=== PATIENT | female | born 1960 | race Caucasian/White ===

== ENCOUNTER → 2017-10-17 10:48 | Outpatient (CLI) | payer OTHER, SELFPAY | PROVIDERS: Family Provider Family Medicine; PCP Family Medicine; Visit Provider Nurse Practitioner Women's Health | DX: Z12.31 Encounter for screening mammogram for malignant neoplasm of breast (principal) | CPT/HCPCS: 77063; 77067 ==

== ENCOUNTER → 2018-10-18 | Outpatient (CLI) | payer OTHER, SELFPAY ==
--- NOTE | 2018-10-18 08:38 | BI_ITS ---
MAMMOGRAPHY - BILATERAL SCREENING REASON FOR EXAM: Female, 58 years old. Routine annual screening examination. PERTINENT HISTORY: Non-contributory. TECHNIQUE: Digital bilateral breast lilian (3D mammographic acquisition) in the CC and MLO projections. 2-D mediolateral oblique (MLO) and craniocaudad (CC) views of both breasts were obtained. CAD: Full Field Digital Mammography with Computer Added Detection was performed. COMPARISON: Comparison is made with prior study dated October 17, 2017 and September 23, 2006. FINDINGS: Breast Composition: The breasts are heterogeneously dense, which may obscure small masses. There are no dominant masses or suspicious calcifications. Stable small bilateral benign-appearing axillary lymph nodes. No other significant abnormalities are identified. There has been no significant change since the prior study. BI/SCREEN MAMM (CAD) W/LILIAN BILAT IMPRESSION: Stable bilateral screening mammogram. Yearly follow-up mammogram recommended. (A) ASSESSMENT CATEGORY: BIRADS Category 2: Benign. A letter regarding these results will be sent to the patient by the facility within 30 days. Approximately 10% of breast cancers are not detected by mammography. A normal mammogram should not delay biopsy of a clinically suspicious abnormality. [id number] Electronically Signed: Yusuf Smith, at 10:38 EDT , Service support ,
== END | disposition home or self-care (01) ==
LOC: OPBI 08:38
PROVIDERS: Family Provider Family Medicine; PCP Family Medicine; Referring Provider Nurse Practitioner Women's Health; Visit Provider Nurse Practitioner Women's Health
DX: Z12.31 Encounter for screening mammogram for malignant neoplasm of breast (principal)
CPT/HCPCS: 77063; 77067

== ENCOUNTER → 2019-12-10 | Outpatient (CLI) | payer OTHER, SELFPAY ==
[2018-10-18 10:05] VITALS: BMI 30.7
[2019-12-10 10:01] VITALS: BMI 29.9
[2019-12-15 13:12] LABS: HPV APTIMA, High Risk Negative (Negative)
== END | disposition home or self-care (01) ==
LOC: OPBI 16:47
PROVIDERS: PCP Family Medicine; Referring Provider Nurse Practitioner Women's Health; Visit Provider Nurse Practitioner Women's Health
DX: Z12.4 Encounter for screening for malignant neoplasm of cervix (principal)
CPT/HCPCS: 87624; 88175; G0145

== ENCOUNTER → 2020-04-27 14:47 | Outpatient (CLI) | payer OTHER, SELFPAY ==
[2019-12-10 10:01] VITALS: BMI 29.9
--- NOTE | 2020-04-27 14:51 | RAD_ITS ---
STUDY: X-RAY - THORACIC SPINE REASON FOR EXAM: Female, 59 years old. BACK PAIN -- left upper chest and shoulder pain and numbness also TECHNIQUE: 3 view(s) of the thoracic spine were obtained. COMPARISON: None. FINDINGS: Normal kyphosis of the thoracic spine. There is no substantial scoliosis. Normal thoracic vertebrae with mild spurring at the mid thoracic endplates. Slightly narrowed mid thoracic disc space heights. The soft tissue structures are unremarkable. RAD/Thoracic Spine 2 Views IMPRESSION: Mild degenerative changes of the thoracic spine. Electronically Signed: Travis Carter DO at 16:05 EDT Tel [phone], Service support ,
== END ==
LOC: MTLAB 14:49 → MTRAD 14:49
PROVIDERS: PCP Family Medicine; Referring Provider Family Medicine; Visit Provider Family Medicine
DX: M54.6 Pain in thoracic spine (principal)
CPT/HCPCS: 72070

== ENCOUNTER → 2020-04-30 12:22 | Outpatient (CLI) | payer OTHER, SELFPAY ==
[2019-12-10 10:01] VITALS: BMI 29.9
--- NOTE | 2020-04-30 12:35 | STE_ITS ---
Reason For Study: CHEST PAIN Stress Results Protocol: Stress Echocardiogram Maximum Predicted HR: 161 bpm Target HR: 137 bpm % Maximum Predicted HR: 91 % Heart Stage Duration Rate BP Comment (mm:ss) (bpm) BASELINE 63 144/74STATES SHE HAS CHEST DISCOMFORT CONSTANTLY SAROJ PROTOCOL- STAGE 1 3:00 108 144/70 SAROJ PROTOCOL- STAGE 2 3:00 123 146/60CHEST MORE TENDER UNDER L ARMPIT SAROJ PROTOCOL- STAGE L KNEE TENDERNESS, L ARMPIT TENDERNESS CONTINUES, 3 2:00 146 160/72SOB RECOVERY 77 118/72SX SUBSIDED Stress Duration: 8:00 mm:ss Maximum Stress HR: 146 bpm Baseline Echocardiogram Findings Stress Echo Wall motion Data Resting WM Intermediate WM Stress WM Doppler Measurements & Calculations AI max jose: 447.7 cm/sec AI max P.2 mmHg AI dec slope: 219.1 cm/sec2 AI P1/2t: 598.6 msec Interpretation Summary Exercise stress echo. 59-year-old lady with a history of coronary artery disease. Stress protocol: Resting EKG demonstrates normal sinus rhythm with a rate of 62 bpm normal intervals are noted resting blood pressure is 144/74 mmHg. The patient exercised according to the regular Saroj protocol for a total duration of 8 minutes. Patient completed 2 minutes into stage III of the Saroj protocol the maximum heart rate attained was 146 bpm which was 90% of max impacted heart rate the maximum workload was 10.4 metabolic equivalents. At rest there were no ST or T wave changes noted to suggest ischemia at peak exercise upsloping ST changes were noted with no meet the criteria for ischemia. No clinical angina was noted. The resting blood pressure was 144/74 with a peak blood pressure 160/72 mmHg which was a good blood pressure response to exercise. Patient had constant chest discomfort throughout the exercise not meeting the criteria for ischemia. Stress echocardiogram. Resting and stress echocardiographic images were obtained. The resting ejection fraction was approximately 55%. No obvious wall motion abnormalities were noted. At peak exercise there was thickening of all ford and reduction in low ventricular cavity size with peaking of ejection fraction at 65%. No wall motion abnormalities were present. Conclusion: Exercise stress echo with no EKG criteria for ischemia at a high workload. Chest discomfort noted not suggestive of angina. Normal stress and resting echocardiographic images. Ordering Physician: Lukas Pierre Referring Physician: Lukas Pierre Performed By: Sara Lux, GRETA, RVT
== END ==
PROVIDERS: PCP Family Medicine; Referring Provider Family Medicine; Visit Provider Family Medicine
DX: R07.9 Chest pain, unspecified (principal)
CPT/HCPCS: 93017; 93350

== ENCOUNTER → 2020-12-15 08:08 | Outpatient (CLI) | payer OTHER, SELFPAY ==
[2019-12-10 10:01] VITALS: BMI 29.9
--- NOTE | 2020-12-15 08:11 | BI_ITS ---
MAMMOGRAPHY - BILATERAL SCREENING REASON FOR EXAM: Female, 60 years old. Routine annual screening examination. PERTINENT HISTORY: Non-contributory. Chronic nipple inversion. TECHNIQUE: Digital bilateral breast lilian (3D mammographic acquisition) in the CC and MLO projections. 2-D mediolateral oblique (MLO) and craniocaudad (CC) views of both breasts were obtained. CAD: Full Field Digital Mammography with Computer Added Detection was performed. COMPARISON: Comparison is made with prior study of 12/18/2018 and 10/17/2017. FINDINGS: Breast Composition: The breasts are heterogeneously dense, which may obscure small masses. There are no dominant masses or suspicious calcifications. Stable small benign-appearing bilateral axillary lymph nodes. No other significant abnormalities are identified. There has been no significant change since the prior study. BI/SCRN MAMM (CAD)W/LILIAN BILAT IMPRESSION: Stable bilateral screening mammogram. Yearly follow-up mammogram recommended. (A) ASSESSMENT CATEGORY: BIRADS Category 2: Benign. A letter regarding these results will be sent to the patient by the facility within 30 days. Approximately 10% of breast cancers are not detected by mammography. A normal mammogram should not delay biopsy of a clinically suspicious abnormality. [id number] Electronically Signed: Yusuf Smith MD at 12:44 EDT , Service support ,
== END ==
PROVIDERS: PCP Family Medicine; Referring Provider Nurse Practitioner Women's Health; Visit Provider Nurse Practitioner Women's Health
DX: Z12.31 Encounter for screening mammogram for malignant neoplasm of breast (principal)
CPT/HCPCS: 77063; 77067

== ENCOUNTER → 2021-12-21 | Outpatient (CLI) | payer MEDICAID, SELFPAY ==
--- NOTE | 2021-12-21 09:07 | BI_ITS ---
MAMMOGRAPHY - BILATERAL SCREENING REASON FOR EXAM: Female, 61 years old. Routine annual screening examination. PERTINENT HISTORY: Non-contributory. The nipples are always inverted. TECHNIQUE: Digital bilateral breast lilian (3D mammographic acquisition) in the CC and MLO projections. 2-D mediolateral oblique (MLO) and craniocaudad (CC) views of both breasts were obtained. CAD: Full Field Digital Mammography with Computer Added Detection was performed. COMPARISON: Comparison is made with prior study dated 12/15/2020 and 10/18/2018. FINDINGS: Breast Composition: The breasts are heterogeneously dense, which may obscure small masses. There are no dominant masses or suspicious calcifications. Stable small benign appearing bilateral axillary lymph nodes. No other significant abnormalities are identified. There has been no significant change since the prior study. BI/SCRN MAMM (CAD)W/LILIAN BILAT IMPRESSION: Stable bilateral screening mammogram. Yearly follow-up mammogram recommended. (A) ASSESSMENT CATEGORY: BIRADS Category 2: Benign. A letter regarding these results will be sent to the patient by the facility within 30 days. Approximately 10% of breast cancers are not detected by mammography. A normal mammogram should not delay biopsy of a clinically suspicious abnormality. [id number] Electronically Signed: Yusuf Smith MD at 10:23 EST ,
== END | disposition home or self-care (01) ==
LOC: OPBI 09:06
PROVIDERS: PCP Family Medicine; Referring Provider Nurse Practitioner Women's Health; Visit Provider Nurse Practitioner Women's Health
DX: Z12.31 Encounter for screening mammogram for malignant neoplasm of breast (principal)
CPT/HCPCS: 77063; 77067

== ENCOUNTER → 2023-01-26 | Outpatient (CLI) | payer OTHER, SELFPAY ==
--- NOTE | 2023-01-26 13:11 | BI_ITS ---
MAMMOGRAPHY - BILATERAL SCREENING REASON FOR EXAM: Female, 62 years old. Routine annual screening examination. PERTINENT HISTORY: Non-contributory. History of bilateral nipple inversion TECHNIQUE: Digital bilateral breast lilian (3D mammographic acquisition) in the CC and MLO projections. 2-D mediolateral oblique (MLO) and craniocaudad (CC) views of both breasts were obtained. CAD: Full Field Digital Mammography with Computer Added Detection was performed. COMPARISON: Comparison is made with prior examination December 21, 2021 and December 15, 2020. FINDINGS: Breast Composition: The breasts are heterogeneously dense, which may obscure small masses. There are no dominant masses or suspicious calcifications. Stable small benign-appearing bilateral axillary lymph nodes. No other significant abnormalities are identified. There has been no significant change since the prior study. BI/SCRN MAMM (CAD)W/LILIAN BILAT IMPRESSION: Stable bilateral screening mammogram. Yearly follow-up mammogram recommended. (A) ASSESSMENT CATEGORY: BIRADS Category 2: Benign. A letter regarding these results will be sent to the patient by the facility within 30 days. Approximately 10% of breast cancers are not detected by mammography. A normal mammogram should not delay biopsy of a clinically suspicious abnormality. [id number] Electronically Signed: Yusuf Smith MD at 14:05 EST ,
== END | disposition home or self-care (01) ==
LOC: OPBI 13:10
PROVIDERS: PCP Family Medicine; Referring Provider Nurse Practitioner Women's Health; Visit Provider Nurse Practitioner Women's Health
DX: Z12.31 Encounter for screening mammogram for malignant neoplasm of breast (principal)
CPT/HCPCS: 77063; 77067

== ENCOUNTER → 2023-12-27 | Outpatient (CLI) | payer OTHER, SELFPAY ==
--- NOTE | 2023-12-27 16:15 | RAD_ITS ---
INDICATION: RT FOOT BACK OF HEEL, BUMP EXAMINATION/TECHNIQUE: X-RAY - RIGHT XR Foot Min 3 Views 3 VIEWS COMPARISON: FINDINGS: SOFT TISSUES: No soft tissue swelling or gas. No radiopaque foreign body. BONES/JOINTS: No acute fracture or subluxation.. Mild hallux valgus. Calcaneal spurring at the Achilles tendon insertion. No sclerotic or destructive changes observed. RAD/Foot min 3 Views IMPRESSION: No acute bony injury. Electronically Signed: Travis Carter DO at 9:53 EST ,
[2023-12-27 18:24] LABS: Uric Acid 4.5 mg/dL (2.6-6.0)
== END | disposition home or self-care (01) ==
LOC: MTLAB 16:08
PROVIDERS: PCP Family Medicine
DX: M67.40 Ganglion, unspecified site (principal)
CPT/HCPCS: 36415; 73630; 84550

== ENCOUNTER → 2024-02-19 | Outpatient (CLI) | payer OTHER, SELFPAY ==
--- NOTE | 2024-02-19 14:36 | BI_ITS ---
MAMMOGRAPHY - BILATERAL SCREENING REASON FOR EXAM: Female, 63 years old. Routine annual screening examination. PERTINENT HISTORY: Non-contributory. TECHNIQUE: Digital bilateral breast lilian (3D mammographic acquisition) in the CC and MLO projections. 2-D mediolateral oblique (MLO) and craniocaudad (CC) views of both breasts were obtained. CAD: Full Field Digital Mammography with Computer Added Detection was performed. COMPARISON: Comparison is made with prior study dated January 26, 2023 and December 21, 2021. FINDINGS: Breast Composition: The breasts are heterogeneously dense, which may obscure small masses. There are no dominant masses or suspicious calcifications. Stable small benign-appearing bilateral axillary lymph nodes. No other significant abnormalities are identified. There has been no significant change since the prior study. BI/SCRN MAMM (CAD)W/LILIAN BILAT IMPRESSION: Stable bilateral screening mammogram. Yearly follow-up mammogram recommended. (A) ASSESSMENT CATEGORY: BIRADS Category 2: Benign. A letter regarding these results will be sent to the patient by the facility within 30 days. Approximately 10% of breast cancers are not detected by mammography. A normal mammogram should not delay biopsy of a clinically suspicious abnormality. [id number] Electronically Signed: Yusuf Smith MD at 10:37 EST ,
== END | disposition home or self-care (01) ==
LOC: OPBI 14:35
PROVIDERS: PCP Family Medicine; Referring Provider Nurse Practitioner Women's Health; Visit Provider Nurse Practitioner Women's Health
DX: Z12.31 Encounter for screening mammogram for malignant neoplasm of breast (principal)
CPT/HCPCS: 77063; 77067

== ENCOUNTER 2024-10-18 09:14 | Day surgery (SDC) | payer OTHER, SELFPAY ==
--- NOTE | 2024-10-11 13:24 | PAT.ANE_ITS ---
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 When Was Last Pacemaker Check QUESTION #4 FULL TEXT: You/Your Family Experience fever (hyperthermia) with Anesthesia Last Oral Intake Last Oral intake: Last Oral Intake NPO since Meds taken in AM with sips of water? 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 PONV - vending machine assembler: PONV - vending machine assembler Female Yes 10/11/24 13:12 HX of Motion Sickness Yes 10/11/24 13:12 HX of N/V After Surgery No 10/11/24 13:12 Non-Smoker Yes 10/11/24 13:12 Duration of Surgery greater No 10/11/24 13:12 than 60 minutes Number of Risk Factors 3 10/11/24 13:12 PONV Score Moderate Risk 10/11/24 13:12 Height & Weight Height & Weight: Anesthesia: Height & Weight Height 5 ft 6 in 01/29/24 13:38 Respiratory Assessment Respiratory Assessment - vending machine assembler: Respiratory Tract Infection Hx - vending machine assembler Hx Respiratory Tract Infection No 10/11/24 13:12 STOP Sleep Apnea STOP Sleep Apnea - vending machine assembler: STOP Sleep Apnea - vending machine assembler Hx Hypertension No 10/11/24 13:12 Hx Sleep Apnea No 10/11/24 13:12 CPAP BIPAP Do you snore loudly (louder No 10/11/24 13:12 than talking or can be heard Do you often feel tired/ No 10/11/24 13:12 fatigued/ sleepy during daytime? Has anyone observed you stop No 10/11/24 13:12 breathing during sleep? STOP Results Negative 10/11/24 13:12 QUESTION #5 FULL TEXT : Do you snore loudly (louder than talking or can be heard through closed doors)? 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 Specify any problems Hx of Preganancy in last 3 N/A 10/11/24 13:12 Months Nurse Filling Out Transfusion NBUCHER 10/11/24 13:12 & Questions: Date: 10/11/24 10/11/24 13:12 Time: 13:12 10/11/24 13:12 Patient unable to answer at this time (ie. confused, unrespo /Reproduction History /Reproductive History - vending machine assembler: /Reproductive Hx- vending machine assembler Hx Now No 10/11/24 13:12 Gestational Age (in weeks): EDC: Hx Hx Para Hx Section SAB No 10/11/24 13:12 [facility] Medical History (Updated 10/11/24 @ 13:17 by Ariana Lopez) Wears contact lenses Wears glasses Non-smoker History of echocardiogram History of stress test History of vertigo Vertigo Ganglion of left hand IBS (irritable bowel syndrome) Home Medications ?Medication ?Instructions ?Recorded ?Last Taken ?Type NK 10/17/17 Unknown History Allergy/AdvReac Type Severity Reaction Status Date / Time Penicillins Allergy Mild Unknown Verified 10/11/24 13:11 sulfamethoxazole Allergy Mild itchy, rash Verified 10/11/24 13:11 Family History Mother Cancer non-hodgkins lymphoma Father Cancer leukemia Heart disease Grandmother Heart disease Surgical History H/O colonoscopy H/O tubal ligation Hx of cholecystectomy History of tonsillectomy H/O dilation and curettage Social History Smoking Status: Never smoker alcohol intake: current details: social substance use type: does not use caffeine: Yes what type of physical activity do you participate in: walking and other details: Ajit frequency: 3-4 times per week seatbelt use: always do you feel safe at home: Yes additional social history: - Oscar Patient and are both retired Recommendation Anesthesia Recommendation Anesthesia recommendation: OPTIMIZED for anesthesia
[2024-10-18] VITALS (9 sets, daily range): BP systolic 97–133; BP diastolic 34–64; PULSE 54–74; RESP 12–16; TEMP 36.1–36.4; O2SAT 96–99; BMI 28.0
[2024-10-18] MEDS: Lactated Ringers 1,000 ML 15 ML IV (09:43)
--- NOTE | 2024-10-18 09:59 | PRE.ANES_ITS ---
ASA Classification* ASA Classification ASA Classification: 1 Assessment & Plan Anesthesia* Anesthesia Assessment Anesthesia Assessment: Discussed sedation and/or anesthesia options, risks, benefits, and alternatives with patient/parents/legal guardian/POA. Questions invited. The patient/parents/legal guardian/POA seems to understand and agrees to proceed with anesthesia plan. Reviewed the physical assessment, medical history, allergy history and patient home medications list prior to surgery/procedure/anesthetic and documented any changes. Performed airway and anesthesia risk assessments. Anesthesia Type Anesthesia Type: MAC History Source History Obtained from:: Patient and Chart Anesthesia Focused Assessment* Temperature: 97.5 F Pulse Rate: 74 Blood Pressure: 133/53 Respiratory Rate: 12 Pulse Ox: 98 Oxygen Delivery Method: Room Air Airway Assessment Mouth opens: >3 cm Mallampati Score: III Teeth Condition: Caps/Crowns (Tooth #8 has a cap. 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 When Was Last Pacemaker Check QUESTION #4 FULL TEXT: You/Your Family Experience fever (hyperthermia) with Anesthesia Last Oral Intake Last Oral intake: Last Oral Intake NPO since 20:00 10/18/24 09:35 Meds taken in AM with sips of No 10/18/24 09:35 water? 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 PONV - vice president of software development: PONV - vice president of software development Female Yes 10/11/24 13:12 HX of Motion Sickness Yes 10/11/24 13:12 HX of N/V After Surgery No 10/11/24 13:12 Non-Smoker Yes 10/11/24 13:12 Duration of Surgery greater No 10/11/24 13:12 than 60 minutes Number of Risk Factors 3 10/11/24 13:12 PONV Score Moderate Risk 10/11/24 13:12 Height & Weight Height & Weight: Anesthesia: Height & Weight Height 5 ft 6 in 10/18/24 09:35 Weight: 79 kg 10/18/24 09:35 Body Mass Index (BMI) 28.0 10/18/24 09:35 Respiratory Assessment Respiratory Assessment - vice president of software development: Respiratory Tract Infection Hx - vice president of software development Hx Respiratory Tract Infection No 10/11/24 13:12 STOP Sleep Apnea STOP Sleep Apnea - vice president of software development: STOP Sleep Apnea - vice president of software development Hx Hypertension No 10/11/24 13:12 Hx Sleep Apnea No 10/11/24 13:12 CPAP BIPAP Do you snore loudly (louder No 10/11/24 13:12 than talking or can be heard Do you often feel tired/ No 10/11/24 13:12 fatigued/ sleepy during daytime? Has anyone observed you stop No 10/11/24 13:12 breathing during sleep? STOP Results Negative 10/11/24 13:12 QUESTION #5 FULL TEXT : Do you snore loudly (louder than talking or can be heard through closed doors)? 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 Specify any problems Hx of Preganancy in last 3 N/A 10/11/24 13:12 Months Nurse Filling Out Transfusion [facility]BU[facility] 10/11/24 13:12 & Questions: Date: 10/11/24 10/11/24 13:12 Time: 13:12 10/11/24 13:12 Patient unable to answer at this time (ie. confused, unrespo /Reproduction History /Reproductive History - vice president of software development: /Reproductive Hx- vice president of software development Hx Now No 10/11/24 13:12 Gestational Age (in weeks): EDC: Hx Hx Para Hx Section SAB No 10/11/24 13:12 Active Medications Active Medications: Current Medications Generic Name Dose Route Start Last Admin Trade Name Freq PRN Reason Stop Dose Admin Lactated Ringer's 1,000 mls @ 15 mls/hr 10/18/24 09:30 10/18/24 09:43 IV 15 mls/hr .Q48H ANTOLIN Administration PFSH Medical History Wears contact lenses Wears glasses Non-smoker History of echocardiogram History of stress test History of vertigo Vertigo Ganglion of left hand IBS (irritable bowel syndrome) Home Medications ?Medication ?Instructions ?Recorded ?Last Taken ?Type NK 10/17/17 Unknown History Allergy/AdvReac Type Severity Reaction Status Date / Time Penicillins Allergy Mild Unknown Verified 10/18/24 09:34 sulfamethoxazole Allergy Mild itchy, rash Verified 10/18/24 09:34 Family History Mother Cancer non-hodgkins lymphoma Father Cancer leukemia Heart disease Grandmother Heart disease Surgical History H/O colonoscopy H/O tubal ligation Hx of cholecystectomy History of tonsillectomy H/O dilation and curettage Social History Smoking Status: Never smoker alcohol intake: current details: social substance use type: does not use caffeine: Yes what type of physical activity do you participate in: walking and other details: Ajit frequency: 3-4 times per week seatbelt use: always do you feel safe at home: Yes additional social history: - Oscar Patient and are both retired Review of Systems (Anesthesia) ROS Narrative System reviewed and no additional complaints, except as documented.
--- NOTE | 2024-10-18 10:09 | H&P.OPEN ---
HPI - General HPI Narrative KEVIN DOMINGUEZ, is a 64 F who presents for screening colonoscopy. Her last colonoscopy was 10 years ago. She denies any abdominal pain or blood in stool. She does not have any family history of colon cancer. [facility] Medical History Wears contact lenses Wears glasses Non-smoker History of echocardiogram History of stress test History of vertigo Vertigo Ganglion of left hand IBS (irritable bowel syndrome) Home Medications ?Medication ?Instructions ?Recorded ?Last Taken ?Type NK 10/17/17 Unknown History Allergy/AdvReac Type Severity Reaction Status Date / Time Penicillins Allergy Mild Unknown Verified 10/18/24 09:34 sulfamethoxazole Allergy Mild itchy, rash Verified 10/18/24 09:34 Family History Mother Cancer non-hodgkins lymphoma Father Cancer leukemia Heart disease Grandmother Heart disease Surgical History H/O colonoscopy H/O tubal ligation Hx of cholecystectomy History of tonsillectomy H/O dilation and curettage Social History Smoking Status: Never smoker alcohol intake: current details: social substance use type: does not use caffeine: Yes what type of physical activity do you participate in: walking and other details: Ajit frequency: 3-4 times per week seatbelt use: always do you feel safe at home: Yes additional social history: - Oscar Patient and are both retired Past Medical/Surgical History Planned Operation Planned Operative Procedure(s): CSCOPE Previous Hospitalizations/Surgeries HX Hospitalizations: No Any Problems With Anesthesia: No You/Your Family Experience Fever (Hyperthermia) With Anes: No Cholinesterase deficiency: No Cardiovascular Hx Hypertension: No Respiratory Hx Sleep Apnea: No Hx Respiratory Tract Infection/Cold (presently): No Do You Snore Loudly (louder than talking or can be heard): No Do You Often Feel Tired/ Fatigued/ Sleepy Dring Daytime?: No Has Anyone Observed You Stop Breathing During Sleep?: No Result (for STOP score): Negative Smoking Status: Never smoker Gastrointestinal Special diet followed at home: No Neurological Does patient have nerve stimulator: No Reproduction : No Miscellaneous Recent Exposure to Contagious Disease: No Allergies Penicillins Allergy (Mild, Verified 10/18/24 09:34) Unknown sulfamethoxazole Allergy (Mild, Verified 10/18/24 09:34) itchy, rash Discharge Is Pt Admitted From a Retirement, or a Halfway: No After D/C, Where Do you Plan to Go: Return Home Vital Signs Vital Signs Vital Signs: 10/18/24 09:35 10/18/24 09:35 10/18/24 10:04 Temperature 97.5 F L 97.5 F L Temperature Source Temporal Pulse Rate 74 74 Respiratory Rate 12 12 Respiratory Pattern Normal Blood Pressure 133/53 H 133/53 H Blood Pressure Mean 79 Blood Pressure Source Monitor Blood Pressure Position Semi-Fowlers Blood Pressure Location Right Arm Pulse Ox 98 98 Oxygen Delivery Method Room Air Room Air Weight Weight: 174 lb 2.643 oz Body Mass Index (BMI) 28.0 Physical Exam Const alert and oriented x3 HEENT normocephalic Eyes PERRL Resp normal respiratory effort and normal air movement Cardio regular rate and regular rhythm GI soft to palpation, non-tender and non-distended Extremity normal to inspection Assessment & Plan Assessment/Plan (1) Screen for colon cancer: PLAN: I explained endoscopy in detail to the patient. I explained the risks including but not limited to stroke or heart attack with anesthesia, perforation of the GI tract, bleeding, infection. I explained that any of these could necessitate further emergency surgery. The patient understands and all questions were answered sufficiently. The patient wishes to proceed with procedure. Dilan Arnold MD Pager: [facility] [address] [place] [address], [address] [place] [address] Office: Surgery Risks - Colonoscopy Risks Include but are not Limited To: Risks include but are not limited to: Bleeding, perforation requiring further surgery, inability to complete colonoscopy requiring barium enema.
--- NOTE | 2024-10-18 10:37 | OP.COLON_ITS ---
Patient Name: Joleen Peralta Procedure Date: 10/18/2024 10:16 AM Date of : 1960 Age: 64 Procedure: Colonoscopy Indications: Screening for colorectal malignant neoplasm Providers: Dilan Arnold MD Referring MD: Dilan Arnold MD Medicines: Monitored Anesthesia Care, Propofol per Anesthesia Patient Profile: This is a 64 year old female. Refer to note in patient chart for documentation of history and physical. Last Colonoscopy: 10 years ago. Complications: No immediate complications. Procedure: Pre-Anesthesia Assessment: - Prior to the procedure, a History and Physical was performed, and patient medications and allergies were reviewed. The patient's tolerance of previous anesthesia was also reviewed. The risks and benefits of the procedure and the sedation options and risks were discussed with the patient. All questions were answered, and informed consent was obtained. Prior Anticoagulants: The patient has taken no anticoagulant or antiplatelet agents. After reviewing the risks and benefits, the patient was deemed in satisfactory condition to undergo the procedure. After I obtained informed consent, the scope was passed under direct vision. Throughout the procedure, the patient's blood pressure, pulse, and oxygen saturations were monitored continuously. The pediatric colonoscope was introduced through the anus and advanced to the cecum, identified by appendiceal orifice and ileocecal valve. The ileocecal valve, appendiceal orifice, and rectum were photographed. Scope In: 10:23:16 AM Scope Withdrawal Time 0 hours 6 minutes 14 seconds Scope Out: 10:35:24 AM Total Procedure Duration Time 0 hours 12 minutes 8 seconds Findings: The entire examined colon appeared normal on direct and retroflexion views. Impression: - The entire examined colon is normal on direct and retroflexion views. - No specimens collected. Recommendation: - Discharge patient to home. - Resume previous diet. - Continue present medications. - Repeat colonoscopy in 10 years for screening purposes. Procedure Code(s): --- Professional --- 45588, Colonoscopy, flexible; diagnostic, including collection of specimen(s) by brushing or washing, when performed (separate procedure) Diagnosis Code(s): --- Professional --- Z12.11, Encounter for screening for malignant neoplasm of colon CPT copyright 2021 [employer]. All rights reserved. The codes documented in this report are preliminary and upon siebel developer review may be revised to meet current compliance requirements. Dilan Arnold MD 10/18/2024 10:37:35 AM This report has been signed electronically. Number of Addenda: 0 Note Initiated On: 10/18/2024 10:16 AM
--- NOTE | 2024-10-18 10:38 | OP.PROVAT_ITS ---
10/18/2024 Lukas Pierre [address] [place] [address] Re : Colonoscopy procedure for Joleen Peralta Dear Dr. Pierre This procedure was performed on Friday, October 18, 2024. My impressions and recommendations are as follows: Impressions : - The entire examined colon is normal on direct and retroflexion views. - No specimens collected. Recommendations : - Discharge patient to home. - Resume previous diet. - Continue present medications. - Repeat colonoscopy in 10 years for screening purposes. My findings are described in the full procedure note, which is enclosed. If I can be of further assistance, please feel free to contact me at Doctor phone number(s): , Work: . Sincerely, Dilan Arnold MD 10/18/2024 10:37:35 AM This report has been signed electronically.
--- NOTE | 2024-10-18 10:44 | PCM.POST.ANE ---
Anesthesia: Postop Eval I Current Vital Signs Temperature: 97.2 F Pulse Rate: 58 Blood Pressure: 97/64 Respiratory Rate: 16 Pulse Ox: 97 Oxygen Delivery Method: Room Air Assessment Airway patent: Yes Spontaneous unlabored respirations: Yes Mental status: Awake nausea: No Vomiting: No Anesthesia Complication: No Fluid Hydration Crystalloid volume administer (ml): 700 Total IV fluid infused: 700 Progress Note Anesthesia document: Postop Eval 1 completed: Yes
--- NOTE | 2024-10-18 14:45 | POSTOPAN2_ITS ---
Anesthesia Postop Eval I Sum Postop Eval Completion status Anesthesia document: Postop Eval 1 completed: Yes Anesthesia Postop Eval I Summary Anesthesia Postop Eval I Summary: Anesthesia Postop Eval I: Assessment Summary Airway patent Yes 10/18/24 10:46 INORGANIC CHEMISTRY TEACHER.[email or web address] Spontaneous unlabored Yes 10/18/24 10:46 INORGANIC CHEMISTRY TEACHER.JDEF respirations Mental status Awake 10/18/24 10:46 INORGANIC CHEMISTRY TEACHER.JDEF nausea No 10/18/24 10:46 INORGANIC CHEMISTRY TEACHER.JDEF Vomiting No 10/18/24 10:46 INORGANIC CHEMISTRY TEACHER.JDEF Anesthesia Postop Eval I: Fluid Summary Crystalloid volume administer 700 10/18/24 10:46 INORGANIC CHEMISTRY TEACHER.JDEF (ml) Colloids volume administered ( ml) Blood Product volume administered (ml) Total IV fluid infused 700 10/18/24 10:46 INORGANIC CHEMISTRY TEACHER.JDEF Anesthesia Postop Eval I: Summary Notes Anesthesia Complication No 10/18/24 10:46 INORGANIC CHEMISTRY TEACHER.JDEF Anesthesia Complication Comment: Post-operative progress note Anesthesia: Postop Eval II Evaluation Mental status: Awake and Calm Pain Level: 0 nausea: No Vomiting: No Complications Anesthesia Complication: No
--- NOTE | 2024-10-18 14:45 | PCM.POSTANE2 ---
Anesthesia Postop Eval I Sum Postop Eval Completion status Anesthesia document: Postop Eval 1 completed: Yes Anesthesia Postop Eval I Summary Anesthesia Postop Eval I Summary: Anesthesia Postop Eval I: Assessment Summary Airway patent Yes 10/18/24 10:46 SCHOOL PSYCHOLOGICAL EXAMINER.[email or web address] Spontaneous unlabored Yes 10/18/24 10:46 SCHOOL PSYCHOLOGICAL EXAMINER.JDEF respirations Mental status Awake 10/18/24 10:46 SCHOOL PSYCHOLOGICAL EXAMINER.JDEF nausea No 10/18/24 10:46 SCHOOL PSYCHOLOGICAL EXAMINER.JDEF Vomiting No 10/18/24 10:46 SCHOOL PSYCHOLOGICAL EXAMINER.JDEF Anesthesia Postop Eval I: Fluid Summary Crystalloid volume administer 700 10/18/24 10:46 SCHOOL PSYCHOLOGICAL EXAMINER.JDEF (ml) Colloids volume administered ( ml) Blood Product volume administered (ml) Total IV fluid infused 700 10/18/24 10:46 SCHOOL PSYCHOLOGICAL EXAMINER.JDEF Anesthesia Postop Eval I: Summary Notes Anesthesia Complication No 10/18/24 10:46 SCHOOL PSYCHOLOGICAL EXAMINER.JDEF Anesthesia Complication Comment: Post-operative progress note Anesthesia: Postop Eval II Evaluation Mental status: Awake and Calm Pain Level: 0 nausea: No Vomiting: No Complications Anesthesia Complication: No
== END 2024-10-18 11:23 | disposition home or self-care (01) ==
LOC: EN 09:15 → AC 09:17
PROVIDERS: PCP Family Medicine; Referring Provider Surgery; Visit Provider Surgery
PROC: 0DJD8ZZ Inspection of Lower Intestinal Tract, Via Natural or Artificial Opening Endoscopic (ICD-10-PCS; CPT 45378; principal; 2024-10-18 10:10)
DX: Z12.11 Encounter for screening for malignant neoplasm of colon (principal)
CPT/HCPCS: 45378; J2405

== ENCOUNTER 2025-01-12 18:09 | Emergency (ER) | payer OTHER, SELFPAY ==
[2025-01-12 18:09] VITALS: BP 156/69; PULSE 73; RESP 14; TEMP 36.2; O2SAT 98; BMI 29.0
--- OUTSIDE RECORDS SUMMARY | 2025-01-12 18:30 | XMS RPT_ITS | CCD ---
Author Organization [facility] CliniSywv Care Team Providers Care Cutter Helper Name Role Phone Jonah INDUSTRIAL ENGINEERING DIRECTOR, Teri S Unavailable [phone] Lukas Pierre Primary Care Provider [phone] Dr. Lukas Pierre Referring Provider CHINO Mckenzie NP Attending Provider [phone] Ignacio DAVIS, Dr. Stewart Primary Care Provider Catalina DAVIS, Dr. Kong Attending Provider [phone] Catalina DAVIS, Dr. Kong Referring Provider [phone] Catalina DAVIS, Dr. Kong Other Provider Terry Pierre Primary Care Unavailable Terry Pierre Referring Unavailable Teri Mckenzie NP Attending Unavailable Bud Bryan Attending Unavailable [facility] Primary Care Unavailable Terry Pierre Referring Unavailable Dilan Arnold Attending Unavailable Dilan Arnold Referring Unavailable [facility] Unavailable Jonah INDUSTRIAL ENGINEERING DIRECTORTeri Attending Unavailable Jonah INDUSTRIAL ENGINEERING DIRECTORTeri Referring Unavailable McMorrow Jey MARTINEZ Attending Unavailable Lenyorrow INDUSTRIAL ENGINEERING DIRECTORJey Referring Unavailable [facility] Primary Care Unavailable Kirit Riddle Attending Unavailable [facility] Primary Care Unavailable Dilan Arnold Referring Unavailable [facility] Unavailable Dilan Arnold Consulting Unavailable Dilan Arnold Attending Unavailable Allergies Allergy Classification Reported Allergen(s) Allergy Type Date of Onset Reaction(s) Facility (4 sources) penicillin v drug allergy 09-23-19 [facility] (4 sources) sulfamethoxazole / trimethoprim drug allergy 09-23-19 17 [facility] (3 sources) Penicillins Allergy to substance 12-22-19 22 Unknown [facility] (3 sources) Sulfamethoxazole Drug Allergy 12-22-19 22 itchy, rash [facility] (1 source) Penicillins Drug allergy (disorder) 10-19-19 [facility] Repository (1 source) Sulfamethoxazole Drug Allergy 10-19-19 [facility] Repository Problems Active Problems Problem Classification Problem Date Documented Date Episodic/Chronic Other connective tissue disease (1 source) Ganglion cyst of left hand; Translations: [Ganglion, left hand] 01-25-2024 Episodic Other screening for suspected conditions (not mental disorders or infectious disease) (6 sources) Patient encounter status; Translations: [Encounter for screening for malignant neoplasm of colon] Onset: 01-29-2024 10-18-2024 Episodic Unclassified (2 sources) Screening mammography ; Translations: [Encounter for screening mammogram for malignant neoplasm of breast] Onset: 09-22-2016 09-22-2016 Unclassified (2 sources) Gynecologic examination ; Translations: [Encounter for gynecological examination (general) (routine) without abnormal findings] Onset: 09-22-2016 09-22-2016 Past or Other Problems Problem Classification Problem Date Documented Da te Episodic/Chronic Other connective tissue disease (1 source) Ganglion, left hand; Translations: [Ganglion, left hand] Onset: 01-25-2024 Episodic Other connective tissue disease (1 source) Ganglion, unspecified site; Translations: [Ganglion, unspecified site] Onset: 01-23-2024 Episodic Results Test Name Value Interpretation Reference Range Facility Colonoscopy Reporton 025 Colonoscopy Report [facility] Medical Records Department [address] [place] [address] Colonoscopy Report MR#: [id number] Acct: [id number] Name: KEVIN DOMINGUEZ Rep #: [id number] : 1960 64 From: Dilan Arnold MD PCP: Dr. Terry Pierre MD Status:[facility] Patient Name: Kevin Dominguez Procedure Date: 10/18/2024 10:16 AM Date of : 1960 Age: 64 Procedure: Colonoscopy Indications: Screening for colorectal malignant neoplasm Providers: Dilan Arnold MD Referring MD: Dilan Arnold MD Medicines: Monitored Anesthesia Care, Propofol per Anesthesia Patient Profile: This is a 64 year old female. Refer to note in patient chart for documentation of history and physical. Last Colonoscopy: 10 years ago. Complications: No immediate complications. Procedure: Pre-Anesthesia Assessment: - Prior to the procedure, a History and Physical was performed, and patient medications and allergies were reviewed. The patient's tolerance of previous anesthesia was also reviewed. The risks and benefits of the procedure and the sedation options and risks were discussed with the patient. All questions were answered, and informed consent was obtained. Prior Anticoagulants: The patient has taken no anticoagulant or antiplatelet agents. After reviewing the risks and benefits, the patient was deemed in satisfactory condition to undergo the procedure. After I obtained informed consent, the scope was passed under direct vision. Throughout the procedure, the patient's blood pressure, pulse, and oxygen saturations were monitored continuously. The pediatric colonoscope was introduced through the anus and advanced to the cecum, identified by appendiceal orifice and ileocecal valve. The ileocecal valve, appendiceal orifice, and rectum were photographed. Scope In: 10:23:16 AM Scope Withdrawal Time 0 hours 6 minutes 14 seconds Scope Out: 10:35:24 AM Total Procedure Duration Time 0 hours 12 minutes 8 seconds Findings: The entire examined colon appeared normal on direct and retroflexion views. Impression: - The entire examined colon is normal on direct and retroflexion views. - No specimens collected. Recommendation: - Discharge patient to home. - Resume previous diet. - Continue present medications. - Repeat colonoscopy in 10 years for screening purposes. Procedure Code(s): --- Professional --- 25494, Colonoscopy, flexible; diagnostic, including collection of specimen(s) by brushing or washing, when performed (separate procedure) Diagnosis Code(s): --- Professional --- Z12.11, Encounter for screening for malignant neoplasm of colon CPT copyright 2021 [employer]. All rights reserved. The codes documented in this report are preliminary and upon grill associate review may be revised to meet current compliance requirements. Dilan Arnold MD 10/18/2024 10:37:35 AM This report has been signed electronically. Number of Addenda: 0 Note Initiated On: 10/18/2024 10:16 AM 10/18/24 1037 Date [facility] Signature: Date (if indicated) CC: Dr. Dilan Arnold MD; Dr. Terry Pierre MD Date Dictated: 10/18/24 1016 Date Transcribed: Arts Administrator: AC Signed [facility] MR[facility]OP[facility] Medical Records Department [address] [place] [address] Provation Physician Letter MR#: [id number] Acct: [id number] Name: KEVIN DOMINGUEZ Rep #: [id number] : 1960 64 From: Dilan Arnold MD PCP: Dr. Terry Pierre MD Status:REG [facility] 10/18/2024 Lukas Pierre [address] [place] [address] Re : Colonoscopy procedure for Kevin Dominguez Dear Dr. Pierre This procedure was performed on Friday, October 18, 2024. My impressions and recommendations are as follows: Impressions : - The entire examined colon is normal on direct and retroflexion views. - No specimens collected. Recommendations : - Discharge patient to home. - Resume previous diet. - Continue present medications. - Repeat colonoscopy in 10 years for screening purposes. My findings are described in the full procedure note, which is enclosed. If I can be of further assistance, please feel free to contact me at Doctor phone number(s): , Work: . Sincerely, Dilan Arnold MD 10/18/2024 10:37:35 AM This report has been signed electronically. 10/18/24 1037 Date Dilan Sullivan Signature: Date (if indicated) CC: Dr. Dilan Arnold MD; Dr. Terry Pierre MD Date Dictated: 10/18/24 1016 Date Transcribed: Arts Administrator: Signed [facility] MR/POSTOP.[facility]on 10-18-2024 MR/POSTOP.[facility] Medical Records Department [address] [place] [address] Anesthesia Postop Eval I 10/18/24 104 MR#: [id number] Acct: [id number] Name: KEVIN DOMINGUEZ Rep #: [id number] : 1960 64 From: Aliyah Monsivais CRNA PCP: Dr. Terry Pierre MD Status:REG [facility] Y Race: C Location: [place] [address] Anesthesia: Postop Eval I Current Vital Signs Temperature: 97.2 F Pulse Rate: 58 Blood Pressure: 97/64 Respiratory Rate: 16 Pulse Ox: 97 Oxygen Delivery Method: Room Air Assessment Airway patent: Yes Spontaneous unlabored respirations: Yes Mental status: Awake nausea: No Vomiting: No Anesthesia Complication: No Fluid Hydration Crystalloid volume administer (ml): 700 Total IV fluid infused: 700 Progress Note Anesthesia document: Postop Eval 1 completed: Yes 10/18/24 1046 Date Aliyah Álvarezignadela Signature: Date CC: Signed [facility] MR/EIURPVZL1mz 10-18-2024 [facility] Medical Records Department [address] [place] [address] Anesthesia Postop Eval II 10/18/24 1445 MR#: [id number] Acct: [id number] Name: KEVIN DOMINGUEZ Rep #: [id number] : 1960 64 From: Aliyah Monsivais ACUTE DIALYSIS REGISTERED NURSE PCP: Dr. Terry Pierre MD Status:DEP [facility] Y Race: C Location: [place] Anesthesia Postop Eval I Sum Postop Eval Completion status Anesthesia document: Postop Eval 1 completed: Yes Anesthesia Postop Eval I Summary Anesthesia Postop Eval I Summary: Anesthesia Postop Eval I: Assessment Summary Airway patent Yes 10/18/24 10:46 ACUTE DIALYSIS REGISTERED NURSE.JDEF Spontaneous unlabored Yes 10/18/24 10:46 ACUTE DIALYSIS REGISTERED NURSE.JDEF respirations Mental status Awake 10/18/24 10:46 ACUTE DIALYSIS REGISTERED NURSE.JDEF nausea No 10/18/24 10:46 ACUTE DIALYSIS REGISTERED NURSE.JDEF Vomiting No 10/18/24 10:46 ACUTE DIALYSIS REGISTERED NURSE.JDEF Anesthesia Postop Eval I: Fluid Summary Crystalloid volume administer 700 10/18/24 10:46 ACUTE DIALYSIS REGISTERED NURSE.JDEF (ml) Colloids volume administered ( ml) Blood Product volume administered (ml) Total IV fluid infused 700 10/18/24 10:46 ACUTE DIALYSIS REGISTERED NURSE.JDEF Anesthesia Postop Eval I: Summary Notes Anesthesia Complication No 10/18/24 10:46 ACUTE DIALYSIS REGISTERED NURSE.JDEF Anesthesia Complication Comment: Post-operative progress note Anesthesia: Postop Eval II Evaluation Mental status: Awake and Calm Pain Level: 0 nausea: No Vomiting: No Complications Anesthesia Complication: No 10/18/24 1445 Date Aliyah Monsivais ACUTE DIALYSIS REGISTERED NURSE Cosigner Signature: Date CC: Signed Normal [facility] MR/Shade 10-11-2024 MR/PAT.[facility] Medical Records Department [address] [place] [address] PAT - Anesthesia 10/11/24 1324 MR#: [id number] Acct: [id number] Name: KEVIN DOMINGUEZ Rep #: [id number] : 1960 64 From: Lenny Delvalle MD PCP: Dr. 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 When Was Last Pacemaker Check QUESTION #4 FULL TEXT: You/Your Family Experience fever (hyperthermia) with Anesthesia Last Oral Intake Last Oral intake: Last Oral Intake NPO since Meds taken in AM with sips of water? 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 Female Yes 10/11/24 13:12 HX of Motion Sickness Yes 10/11/24 13:12 HX of N/V After Surgery No 10/11/24 13:12 Non-Smoker Yes 10/11/24 13:12 Duration of Surgery greater No 10/11/24 13:12 than 60 minutes Number of Risk Factors 3 10/11/24 13:12 PONV Score Moderate Risk 10/11/24 13:12 Height Weight Height Weight: Anesthesia: Height Weight Height 5 ft 6 in 01/29/24 13:38 Respiratory Assessment Respiratory Assessment - butter maker: Respiratory Tract Infection Hx - butter maker Hx Respiratory Tract Infection No 10/11/24 13:12 STOP Sleep Apnea STOP Sleep Apnea - butter maker: STOP Sleep Apnea - butter maker Hx Hypertension No 10/11/24 13:12 Hx Sleep Apnea No 10/11/24 13:12 CPAP BIPAP Do you snore loudly (louder No 10/11/24 13:12 than talking or can be heard Do you often feel tired/ No 10/11/24 13:12 fatigued/ sleepy during daytime? Has anyone observed you stop No 10/11/24 13:12 breathing during sleep? STOP Results Negative 10/11/24 13:12 QUESTION #5 FULL TEXT : Do you snore loudly (louder than talking or can be heard through closed doors)? 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 Specify any problems Hx of Preganancy in last 3 N/A 10/11/24 13:12 Months Nurse Filling Out Transfusion NBUCHER 10/11/24 13:12 Questions: Date: 10/11/24 10/11/24 13:12 Time: 13:12 10/11/24 13:12 Patient unable to answer at this time (ie. confused, unrespo /Reproducti on History /Reproducti ve History - butter maker: /Reproducti ve Hx- butter maker Hx Now No 10/11/24 13:12 Gestational Age (in weeks): EDC: Hx Hx Para Hx Section SAB No 10/11/24 13:12 [facility] Medical History (Updated 10/11/24 @ 13:17 by Ariana Lopez) Wears contact lenses Wears glasses Non-smoker History of echocardiogram History of stress test History of vertigo Vertigo Ganglion of left hand IBS (irritable bowel syndrome) Home Medications ???Medication ???Instructions ???Recorded ???Last Taken ???Type NK 10/17/17 Unknown History Allergy/AdvReac Type Severity Reaction Status Date / Time Penicillins Allergy Mild Unknown Verified 10/11/24 13:11 sulfamethoxazole Allergy Mild itchy, rash Verified 10/11/24 13:11 Family History Mother Cancer non-hodgkins lymphoma Father Cancer leukemia Heart disease Grandmother Heart disease Surgical History H/O colonoscopy H/O tubal ligation Hx of cholecystectomy History of tonsillectomy H/O dilation and curettage Social History ... Normal [facility] SCRN MAMM (CAD)W/LILIAN BILATo n 02-19-2024 SCRN MAMM (CAD)W/LILIAN BILAT [facility] Imaging Services [address] [place] [address] SCRN MAMM (CAD)W/LILIAN BILAT MR#: [id number] Acct: [id number] Name: KEVIN DOMINGUEZ Rep #: [id number] : 1960 F 63 From: Yusuf barbosa MD PCP: Dr. Terry Pierre MD Status: [facility] Study: SCRN MAMM (CAD)W/LILIAN BILAT Date of Exam: 08/07 Exam# [id number] Ordering Dr: Teri Mckenzie INDUSTRIAL ENGINEERING DIRECTOR INDUSTRIAL ENGINEERING DIRECTOR -C [id number] MAMMOGRAPHY - BILATERAL SCREENING REASON FOR EXAM: Female, 63 years old. Routine annual screening examination. PERTINENT HISTORY: Non-contributory. TECHNIQUE: Digital bilateral breast lilian (3D mammographic acquisition) in the CC and MLO projections. 2-D mediolateral oblique (MLO) and craniocaudad (CC) views of both breasts were obtained. CAD: Full Field Digital Mammography with Computer Added Detection was performed. COMPARISON: Comparison is made with prior study dated January 26, 2023 and December 21, 2021. FINDINGS: Breast Composition: The breasts are heterogeneously dense, which may obscure small masses. There are no dominant masses or suspicious calcifications. Stable small benign-appearing bilateral axillary lymph nodes. No other significant abnormalities are identified. There has been no significant change since the prior study. BI/SCRN MAMM (CAD)W/LILIAN BILAT IMPRESSION: Stable bilateral screening mammogram. Yearly follow-up mammogram recommended. (A) ASSESSMENT CATEGORY: BIRADS Category 2: Benign. A letter regarding these results will be sent to the patient by the facility within 30 days. Approximately 10% of breast cancers are not detected by mammography. A normal mammogram should not delay biopsy of a clinically suspicious abnormality. [id number] Electronically Signed: Yusuf Smith MD at 10:37 EST Reading Location ID and State: [facility] / [place] , Service support , CC: CHINO Mckenzie; Dr. Terry Pierre MD Arts Administrator: Signed Normal [facility] Drycleaner Office Visit Reporton 01-29-2024 Drycleaner Office Visit Report [facility] [address], [address] [place] [address] OFFICE VISIT Date of Service: 01/29/24 MR#: [id number] Acct: [id number] Name: KEVIN DOMINGUEZ Rep #: [id number] : 1960 Provider: CHINO stack Age/Sex: 63/F Location[facility] Status: Signed Intake Vital Signs 01/26/23 13:42 01/25/24 10:03 01/29/24 13:34 01/29/24 13:38 Height 5 ft 6 in 5 ft 6 in 5 ft 6 in 5 ft 6 in Weight: 183 lb BMI 29.5 BP 130/76 H 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) Chief Complaint: Annual Sole Dyer Required: No Is patient in pain?: No Allergies Penicillins Allergy (Mild, Verified 01/29/24 13:43) Unknown sulfamethoxazole Allergy (Mild, Verified 01/29/24 13:43) itchy, rash Medications ???Medication ???Instructions ???Recorded ???Confirmed ???Type NK 10/17/17 01/29/24 History Is last menstrual period known: No Post menopausal: Yes Patient : No : No PFSH Medical History Vertigo Ganglion of left hand IBS (irritable bowel syndrome) Surgical History H/O colonoscopy H/O tubal ligation Hx of cholecystectomy History of tonsillectomy H/O dilation and curettage Family History Mother Cancer non-hodgkins lymphoma Father Cancer leukemia Heart disease Grandmother Heart disease Social History Smoking Status: Never smoker alcohol intake: current details: social substance use type: does not use caffeine: Yes what type of physical activity do you participate in: walking and other details: Ajit frequency: 3-4 times per week seatbelt use: always do you feel safe at home: Yes additional social history: - Oscar Patient and are both retired History 3 Elective abortions Hx Para 2 Spontaneous abortions Hx # Term Pregnancies Ectopic pregnancies Hx # Pregnancies Multiple births # of living children Past Pregnancies Del. Date Name GA/Weeks Outcome Route Bth Weight Infant Gen [facility] 1988 Lucy Unknown 1992 Remi HPI Encounter for routine gynecological examination Details: KEVIN DOMINGUEZ is a 63 year old who presents for annual exam. Denies concerns Last PAP: 2019 History of abnormal PAP: no Last mammogram: 12/2022 History of abnormal mammogram: no Colon cancer screenin Other preventative health care screenings: Ignacio Blackmon Constitutional: Denies fatigue, weight gain or weight loss Cardio Card: Denies chest pain Resp Resp: Denies cough or dyspnea on exertion GI GI: Denies abdominal pain, bloating, change in stool character, constipation or vomiting : Reports as per HPI; Denies difficulty voiding, pelvic pain, urinary frequency, urinary incontinence, urinary urgency, vaginal discharge or vaginal pruritus Exam Const General: cooperative, healthy appearing, no acute distress and well developed Orientation: alert, oriented to person and oriented to place [place] Head: normal to inspection Neck Neck: normal visual inspection Thyroid: thyroid normal Lymphatic: no lymphadenopathy noted Chest Breast inspection: normal inspection of the breasts and normal inspection of the axillae Breast palpation: normal palpation of the breasts, normal palpation of the axillae and no axillary lymphadenopathy Resp Effort Inspection: normal respiratory effort GI Palpation: soft, no masses and nontender Rectal Exam: deferred External Female Exam: normal external appearance and normal appearance of the urethra Urethra: normal appearance of the urethra and normal palpation Speculum Exam - Vagina: normal appearance of the vagina and normal vaginal discharge Speculum Exam - Cervix: normal appearance of the cervix Bimanual Exam- Vagina Uterus: normal bimanual exam, uterine size normal, uterine shape normal and non-tender Bimanual Exam- Adnexa, other: normal adnexae, no masses, normal and non-tender Pelvic Support: normal Neuro General: patient alert and patient oriented x3 Psych Affect: normal affect Coding Level of Care Code Off vis,est,prev 40-64yrs Diagnoses Encounter for gynecological examination without abnormal finding Z01.419 Gynecological examination findings: abnormal findings ABSENT Assessment and Plan Assessment and Plan (1) Encounter for routine gynecological examination: Qualifiers: Gynecological examination findings: abnormal findings ABSENT Qualified Code(s): Z01.419 - Encounter for gynecological examination (general) (routine) without abnormal findings Orders: O (more content not included)... Normal [facility] Finger(s) Min 2 Viewson 01-13 Finger(s) Min 2 Views [facility] [address] [place] [address] Finger(s) Min 2 Views MR#: [id number] Acct: [id number] Name: KEVIN DOMINGUEZ Rep #: [id number] : 1960 F 63 From: Travis Carter DO PCP: Dr. Terry Pierre MD Status: DEP AMB Study: Finger(s) Min 2 Views Date of Exam: 01/25/24 Exam# [id number] Ordering Dr: Bud Bryan MD [id number] INDICATION: pain in the 4th digit EXAMINATION/TECHNIQU E: X-RAY - LEFT HAND XR Fingers Min 2 Views 3 VIEWS COMPARISON: ____ FINDINGS: SOFT TISSUES: No soft tissue swelling or gas. No radiopaque foreign body. BONES/JOINTS: No acute fracture or subluxation.. Normal alignment. Preservation of the joint space.. No sclerotic or destructive changes observed. RAD/Finger(s) Min 2 Views IMPRESSION: No acute bone injury. Electronically Signed: Travis Carter DO at 8:52 EST Reading Location ID and State: [facility] / [place] Tel [phone], Service support , CC: Dr. Terry Pierre MD; Dr. Bud Bryan MD Arts Administrator: Signed Normal [facility] Orthopedic Visit Reporton Orthopedic Visit Report [facility] [address] [place] [address] OFFICE VISIT Date of Service: 01/25/24 MR#: [id number] Acct: [id number] Name: KEVIN DOMINGUEZ Rep #: [id number] : 1960 Provider: Dr. Bud rich MD Age/Sex: 63/F Location: [facility] Status: Signed Intake Vital Signs 01/26/23 13:42 01/25/24 10:03 Height 5 ft 6 in 5 ft 6 in Weight: 183 lb 2 oz BMI 29.5 Intake Visit Reasons: LEFT HAND Chief Complaint: Left Hand Accompanied by: Is patient in pain?: Yes Pain scale (1-10): 2 Allergies Penicillins Allergy (Mild, Verified 01/25/24 10:04) Unknown sulfamethoxazole Allergy (Mild, Verified 01/25/24 10:04) itchy, rash Medications ???Medication ???Instructions ???Recorded ???Confirmed ???Type NK 10/17/17 01/25/24 History PFSH Medical History (Updated 01/25/24 @ 10:06 by Melissa Lundberg) Vertigo Ganglion of left hand IBS (irritable bowel syndrome) Surgical History H/O colonoscopy H/O tubal ligation Hx of cholecystectomy History of tonsillectomy H/O dilation and curettage Family History Mother Cancer non-hodgkins lymphoma Father Cancer leukemia Heart disease Grandmother Heart disease Social History Smoking Status: Never smoker alcohol intake: current details: social substance use type: does not use caffeine: Yes what type of physical activity do you participate in: walking and other details: Ajit frequency: 3-4 times per week seatbelt use: always do you feel safe at home: Yes additional social history: - Oscar Patient and are both retired HPI LEFT HAND Details: This documentation accurately reflects the service provided and the decisions made by me, Dr. Bud Bryan MD 01/25/24 0805. Part of today???s visit was documented by [ ], acting as scribe. KEVIN DOMINGUEZ is a 63 year old F here today for L hand 4th digit mass. Patient had a minor trauma to the volar aspect of the left fourth digit about a month ago there was a blood blister subsequently this turned into a bit of a hard nodule feeling there. There is no locking or catching of the digit no numbness or tingling. Very minimal pain not interfering with activities of daily living. Stays there, not resolving. does not come and go. No other lumps bumps masses or malignancies. Has not had this investigated or treated so far. Supplemental Info X-rays 3 views left fourth digit reveal no acute abnormalities. Joint space mild narrowing at the DIP joint Coding Level of Care Code Off vis,new,level 3 Diagnoses Ganglion of left hand M67.442 Assessment and Plan Assessment and Plan (1) Ganglion of left hand: Status: Acute Plan: KEVIN DOMINGUEZ is a 63 year old F here today for L hand ganglion cyst. This is most likely ganglion cyst of the flexor tendon sheath there could be some scar tissue from previous trauma or other soft tissue tumors or malignancies. Most likely to be benign. I will go ahead and order an ultrasound of this area and follow-up after that they understood no further questions or concerns in the meantime activities as tolerated. Handout from [facility] on ganglion cyst given. Orders: Orders Finger(s) Min 2 Views Today M67.442 - Ganglion, left hand Ortho Exam General General: Yes no acute distress Neurologic: Yes alert and Yes oriented x3 Psychologic: Yes reasonable and appropriate Right Wrist/Hand Skin/Wound: No Swelling and No Ecchymosis Left Wrist/Hand Skin/Wound: Yes CDI, No Swelling, No Ecchymosis, Yes nail intact, Yes capillary refill normal and No erythema Left Wrist: Yes ROM-Extension 0-60, Yes ROM-Flexion 0-80, Yes ROM-Pronation 0-80 and Yes ROM- Supination 0-90 Motor: EPL: 5, FDP-2: 5, 1st Dorsal Interosseous: 5 and APB: 5 Sensation: Radial: I, Ulnar: I and Median: I WRIST: Small nodule mildly tender at the volar aspect of the fourth digit just proximal to the PIP no redness warmth or drainage. 01/25/24 1049 Date [facility] Signature: Date (if applicable) CC: Normal [facility] Foot min 3 Viewson 4 Foot min 3 Views [facility] Imaging Services [address] [place], [place] [address] Foot min 3 Views MR#: [id number] Acct: [id number] Name: KEVIN DOMINGUEZ Rep #: [id number] : 1960 F 63 From: Travis Carter DO PCP: Dr. Terry Pierre MD Status: REG CLI Study: Foot min 3 Views Date of Exam: 12/27/23 Exam# [id number] Ordering Dr: Jey Soolmon NP INDUSTRIAL ENGINEERING DIRECTOR -C [id number] INDICATION: RT FOOT BACK OF HEEL, BUMP EXAMINATION/TECHNIQU E: X-RAY - RIGHT XR Foot Min 3 Views 3 VIEWS COMPARISON: ____ FINDINGS: SOFT TISSUES: No soft tissue swelling or gas. No radiopaque foreign body. BONES/JOINTS: No acute fracture or subluxation.. Mild hallux valgus. Calcaneal spurring at the Achilles tendon insertion. No sclerotic or destructive changes observed. RAD/Foot min 3 Views IMPRESSION: No acute bony injury. Electronically Signed: Travis Carter DO at 9:53 EST Reading Location ID and State: [facility] / [place] Tel [phone], Service support , CC: Jey Solomon; Dr. Terry Pierre MD Arts Administrator: Signed Normal [facility] Uric Acidon 12-27-2023 URIC 4.5 mg/dL Normal 2.6-6.0 [facility] Comment on above: Order Comment: Order Date: 12/27/23 Order Info: 3084-1 - URIC Result Comment: The drugs N-Acetylcysteine and Metamizole may falsely depress this assay. Performed By: #### L [id number] #### [facility] Laboratory [address] [place], [address] Lab Report: PAP I-G HPV Hi R iskon 09-28-2016 GE use only - for LinkLogic import when terms are not otherwise specified Negative Invalid Interpretation Code Negative [facility] HPV HC,HGH RISK Negative Negative [facility] Office Visit: est annual [facility] kim 09-22-2016 Documentation of current medications (procedure) T Invalid Interpretation Code [facility] Documentation of current medications (procedure) Done Invalid Interpretation Code [facility] Fall risk assessment No Invalid Interpretation Code [facility] Protein [facility] Protein mass conc [facility] Tobacco smoking status NHIS Never Invalid Interpretation Code [facility] Tobacco smoking status NHIS Never smoker [facility] Tobacco use [facility] Never smoker Invalid Interpretation Code [facility] Office Visit: [facility] MG Breast screening Normal Bilateral Invalid Interpretation Code [facility] Office Visit: est annual [facility] mogramon 02-13-2015 General categories Cyto stain Interp (Cervical or vaginal smear or scraping) Normal Invalid Interpretation Code [facility] Vital Signs Date Time Vital Sign Value Performing Clinician Faci lity 10-18-2024 11:00-0400 Body temperature 97 [degF] Dr. Terry Pierre MD Work Phone: [facility] 10-18-2024 11:00-0400 Diastolic blood pressure 63 mm[Hg] Dr. Terry Pierre MD Work Phone: [facility] 10-18-2024 11:00-0400 Heart rate 54 /min Dr. Terry Pierre MD Work Phone: [facility] 10-18-2024 11:00-0400 Respiratory rate 16 /min Dr. Terry Pierre MD Work Phone: [facility] 10-18-2024 11:00-0400 SaO2% (BldA) [Mass fraction] 97 % Dr. Terry Pierre MD Work Phone: [facility] 10-18-2024 11:00-0400 Systolic blood pressure 117 mm[Hg] Dr. Terry Pierre MD Work Phone: [facility] 10-18-2024 09:35-0400 Body height 167.[address] Terry Pierre MD Work Phone: [facility] 10-18-2024 09:35-0400 Body mass index (BMI) [Ratio] 28 kg/m2 Dr. Terry Pierre MD Work Phone: [facility] 10-18-2024 09:35-0400 Body weight [address] Terry Pierre MD Work Phone: [facility] 12-21-2021 09:51-0500 Body height 167.[address] Lukas Pierre Work Phone: [facility] Work Phone: 12-21-2021 09:51-0500 Body mass index (BMI) [Ratio] 30.2 kg/m2 Dr. Lukas Pierre Work Phone: [facility] Work Phone: 12-21-2021 09:51-0500 Body weight 84.[address] Lukas Pierre Work Phone: [facility] Work Phone: 12-21-2021 09:51-0500 Diastolic blood pressure 84 mm[Hg] Dr. Lukas Pierre Work Phone: [facility] Work Phone: 12-21-2021 09:51-0500 Systolic blood pressure 132 mm[Hg] Dr. Lukas Pierre Work Phone: [facility] Work Phone: 09-22-2016 09:19-0400 BMI (Body Mass Index) 31.37 kg/m2 Teri Mckenzie NP [facility] 09-22-2016 09:19-0400 Body Temperature 97.2 [degF] Teri Mckenzie INDUSTRIAL ENGINEERING DIRECTOR [facility] 09-22-2016 09:19-0400 BP Diastolic 80 mm[Hg] Teri Mckenzie NP [facility] 09-22-2016 09:19-0400 BP Systolic 118 mm[Hg] Teri Mckenzie INDUSTRIAL ENGINEERING DIRECTOR [facility] 09-22-2016 09:19-0400 Height 167.64 cm Teri Mckenzie NP [facility] 09-22-2016 09:19-0400 Pulse (Heart Rate) 62 /min Teri Cooktings INDUSTRIAL ENGINEERING DIRECTOR [facility] 09-22-2016 09:190400 Respiratory Rate 16 /min Teri Mckenzie INDUSTRIAL ENGINEERING DIRECTOR [facility] 09-22-2016 09:0400 Weight 88.18 kg Teri Jonah INDUSTRIAL ENGINEERING DIRECTOR [facility] Encounters Encounter Date Encounter Type Care Provider Facility Start: 10-18-2024 Non-patient / Non-visit Dr. Irina Arnold MD [facility] Start: 10-18-2024 End: 10-18-2024 Admission to same day surgery center Dr. Dilan Arnold MD -Endoscopy Work Phone: Start: 10-18-2024 End: 10-18-[address] Terry Pierre MD Work Phone: -Endoscopy Start: 02-19-2024 End: 02-19-2024 ambulatory Terry Pierre Facility:[facility] Start: 01-29-2024 End: 01-29-2024 ambulatory Terry Pierre Facility:[facility] Start: 01-25-2024 End: 01-25-2024 ambulatory Bud Bryan Facility:[facility] Start: 12-27-2023 End: 12-27-2023 ambulatory Jey Solomon NP Facility:[facility] Start: 12-21-2021 End: 12-21-[address] Lukas Pierre Work Phone: [facility] Work Phone: Start: 12-21-2021 End: 12-21-[address] Lukas Pierre Work Phone: [facility] Procedures Date Procedure Procedure Detail Performing Clinician Start: 10-18-[address] Terry hayes MD Work Phone: Start: 12-21-[address] Lukas yu Work Phone: Start: 09-22-2016 Gynecologic examination Routine gynecological exam Teri Mckenzie INDUSTRIAL ENGINEERING DIRECTOR Start: 09-22-2016 Screening mammography Mammogram yearly screening Teri Mckenzie INDUSTRIAL ENGINEERING DIRECTOR Plan of Treatment Date Care Activity Detail Author Start: 10-18-2024 Patient discharge [facility] Start: 09-22-2016 End: 09-22-2016 Appointment Appointment [facility] Start: 09-22-2016 End: 09-23-2016 Mammogram, screening Mammogram, Screening, both breasts [facility] DXA Bone [Mass/Area] Bone density [facility] Work Phone: Payers Date Payer Category Payer Self-pay [id number] 2023 Unknown [id number] Unknown [facility] [id number] Unknown [id number] 2.16.8 [id number] Unknown [id number] 2.16.8 [id number] Unknown [id number] 2.16.8 [id number] Unknown [id number] 2.16.8 [id number] Unknown [id number] 2.16.8 [id number] Unknown [id number] 2.16.8 [id number] Unknown [id number] 2.16.8 [id number] Social History Date Type Detail Facility Start: 12-21-2021 Tobacco smoking stat us NHIS Unknown if ever smoked [facility] Work Phone: Start: 1960 Sex Assigned At Female [facility] Start: 10-18-2024 Tobacco smoking stat us NHIS Never smoked tobacco (finding) [facility] Goals Date Patient Goal Desired Activity /State Mental Status Date Assessment Result Facility 10-18-2024 Cognitive function Voice/Name [facility] Work Phone: Clinical Notes 10-18-2024 Note Date & Type Note Facility 10-18-2024 Evaluation note Diagnosis Onset Date Resolution Screen for colon cancer acute October 18, 025 9:14am [facility] Work Phone: 1(732) 136-909909-05-2025 Consult note [facility] Medical Records Department [address] [place] [address] Anesthesia Postop Eval I 10/18/24 1044 MR#: [id number] Acct: [id number] Name: KEVIN DOMINGUEZ Rep #: : 1960 64 From: Aliyah Monsivais CRNA PCP: Dr. Terry Pierre MD Status :REG [facility] Y Race: C Location: [place] [address] Anesthesia: Postop Eval I Current Vital Signs Temperature: 97.2 F Pulse Rate: 58 Blood Pressure: 97/64 Respiratory Rate: 16 Pulse Ox: 97 Oxygen Delivery Method: Room Air Assessment Airway patent: Yes Spontaneous unlabored respirations: Yes Mental status: Awake nausea: No Vomiting: No Anesthesia Complication: No Fluid Hydration Crystalloid volume administer (ml): 700 Total IV fluid infused: 700 Progress Note Anesthesia document: Postop Eval 1 completed: Yes 10/18/[address] ACUTE DIALYSIS REGISTERED NURSE> Date _ Aliyah Monsivais ACUTE DIALYSIS REGISTERED NURSE Cosigner Signature: Date CC: ~ Signed [facility]09-05-2025 Procedure note [facility] Medical Records Department [address] [place] [address] Provation Physician Letter MR#: [id number] Acct: [id number] Name: KEVIN DOMINGUEZ Rep #: : [id number] From: Dilan talamantes MD PCP: Dr. Terry Pierre MD Status :REG [facility] 10/18/2024 Lukas Pierre [address] [place] [address] Re : Colonoscopy procedure for Kevin Dominguez Dear Dr. Pierre This procedure was performed on Friday, October 18, 2024. My impressions and recommendations are as follows: Impressions : - The entire examined colon is normal on direct and retroflexion views. - No specimens collected. Recommendations : - Discharge patient to home. - Resume previous diet. - Continue present medications. - Repeat colonoscopy in 10 years for screening purposes. My findings are described in the full procedure note, which is enclosed. If I can be of further assistance, please feel free to contact me at Doctor phone number(s): , Work: . Sincerely, Dilan Arnold MD 10/18/2024 10:37:35 AM This report has been signed electronically. 10/18/24 1037 Date _ Dilan Arnold MD [facility] Signature: Date (if indicated) CC: Dr. Dilan Arnold MD; Dr. Terry Pierre MD ~ Date Dictated: 10/18/24 1016 Date Transcribed: Arts Administrator: AC Signed [facility]09-05-2025 Procedure note [facility] Medical Records Department [address] [place] [address] Colonoscopy Report MR#: [id number] Acct: [id number] Name: KEVIN DOMINGUEZ Rep #:[id number] : 1960 64 From: Dilan talamantes MD PCP: Dr. Terry Pierre MD Status :REG [facility] Patient Name: Kevin Dominguez Procedure Date: 10/18/2024 10:16 AM Date of : 1960 Age: 64 Procedure: Colonoscopy Indications: Screening for colorectal malignant neoplasm Providers: Dilan Arnold MD Referring MD: Dilan Arnold MD Medicines: Monitored Anesthesia Care, Propofol per Anesthesia Patient Profile: This is a 64 year old female. Refer to note in patient chart for documentation of history and physical. Last Colonoscopy: 10 years ago. Complications: No immediate complications. Procedure: Pre-Anesthesia Assessment: - Prior to the procedure, a History and Physical was performed, and patient medications and allergies were reviewed. The patient's tolerance of previous anesthesia was also reviewed. The risks and benefits of the procedure and the sedation options and risks were discussed with the patient. All questions were answered, and informed consent was obtained. Prior Anticoagulants: The patient has taken no anticoagulant or antiplatelet agents. After reviewing the risks and benefits, the patient was deemed in satisfactory condition to undergo the procedure. After I obtained informed consent, the scope was passed under direct vision. Throughout the procedure, the patient's blood pressure, pulse, and oxygen saturations were monitored continuously. The pediatric colonoscope was introduced through the anus and advanced to the cecum, identified by appendiceal orifice and ileocecal valve. The ileocecal valve, appendiceal orifice, and rectum were photographed. Scope In: 10:23:16 AM Scope Withdrawal Time 0 hours 6 minutes 14 seconds Scope Out: 10:35:24 AM Total Procedure Duration Time 0 hours 12 minutes 8 seconds Findings: The entire examined colon appeared normal on direct and retroflexion views. Impression: - The entire examined colon is normal on direct and retroflexion views. - No specimens collected. Recommendation: - Discharge patient to home. - Resume previous diet. - Continue present medications. - Repeat colonoscopy in 10 years for screening purposes. Procedure Code(s): --- Professional --- 40550, Colonoscopy, flexible; diagnostic, including collection of specimen(s) by brushing or washing, when performed (separate procedure) Diagnosis Code(s): --- Professional --- Z12.11, Encounter for screening for malignant neoplasm of colon CPT copyright 2021 [employer]. All rights reserved. The codes documented in this report are preliminary and upon grill associate review may be revised to meet current compliance requirements. Dilan Arnold MD 10/18/2024 10:37:35 AM This report has been signed electronically. Number of Addenda: 0 Note Initiated On: 10/18/2024 10:16 AM 10/18/24 1037 Date _ Dilan Arnold MD Cosigner Signature: Date (if indicated) CC: Dr. Dilan Arnold MD; Dr. Terry Pierre MD ~ Date Dictated: 10/18/24 1016 Date Transcribed: Arts Administrator: AC Signed [facility]09-05-2025 History and physical note [facility] Medical Records Department [address] [place] [address] History & Physical Exam 10/18/24 1009 MR#: [id number] Acct: [id number] Name: KEVIN DOMINGUEZ Rep #:[id number] : 1960 64 From: Dilan talamantes MD PCP: Dr. Terry Pierre MD Status :[facility] Location: [place] [address] HPI - General HPI Narrative KEVIN DOMINGUEZ, is a 64 F who presents for screening colonoscopy. Her lastcolonoscopy was 10 years ago. She denies any abdominal pain or blood in stool. She does not have any family history of colon cancer. [facility] Medical History Wears contact lenses Wears glasses Non-smoker History of echocardiogram History of stress test History of vertigo Vertigo Ganglion of left hand IBS (irritable bowel syndrome) Home Medications ?Medication ?Instructions ?Recorded ?Last Taken ?Type NK 10/17/17 Unknown History Allergy/AdvReac Type Severity Reaction Status Date / Time Penicillins Allergy Mild Unknown Verified 10/18/24 09:34 sulfamethoxazole Allergy Mild itchy, rash Verified 10/18/24 09:34 Family History Mother Cancer non-hodgkins lymphoma Father Cancer leukemia Heart disease Grandmother Heart disease Surgical History H/O colonoscopy H/O tubal ligation Hx of cholecystectomy History of tonsillectomy H/O dilation and curettage Social History Smoking Status: Never smoker alcohol intake: current details: social substance use type: does not use caffeine: Yes what type of physical activity do you participate in: walking and other details: Ajit frequency: 3-4 times per week seatbelt use: always do you feel safe at home: Yes additional social history: - Oscar Patient and are both retired Past Medical/Surgical History Planned Operation Planned Operative Procedure(s): CSCOPE Previous Hospitalizations/Surgeries HX Hospitalizations: No Any Problems With Anesthesia: No You/Your Family Experience Fever (Hyperthermia) With Anes: No Cholinesterase deficiency: No Cardiovascular Hx Hypertension: No Respiratory Hx Sleep Apnea: No Hx Respiratory Tract Infection/Cold (presently): No Do You Snore Loudly (louder than talking or can be heard): No Do You Often Feel Tired/ Fatigued/ Sleepy Dring Daytime?: No Has Anyone Observed You Stop Breathing During Sleep?: No Result (for STOP score): Negative Smoking Status: Never smoker Gastrointestinal Special diet followed at home: No Neurological Does patient have nerve stimulator: No Reproduction : No Miscellaneous Recent Exposure to Contagious Disease: No Allergies Penicillins Allergy (Mild, Verified 10/18/24 09:34) Unknown sulfamethoxazole Allergy (Mild, Verified 10/18/24 09:34) itchy, rash Discharge Is Pt Admitted From a Penitentiary, or a Jail: No After D/C, Where Do you Plan to Go: Return Home Vital Signs Vital Signs Vital Signs: 10/18/24 09:35 10/18/24 09:35 10/18/24 10:04 Temperature 97.5 F L 97.5 F L Temperature Source Temporal Pulse Rate 74 74 Respiratory Rate 12 12 Respiratory Pattern Normal Blood Pressure 133/53 H 133/53 H Blood Pressure Mean 79 Blood Pressure Source Monitor Blood Pressure Position Semi-Fowlers Blood Pressure Location Right Arm Pulse Ox 98 98 Oxygen Delivery Method Room Air Room Air Weight Weight: 174 lb 2.643 oz Body Mass Index (BMI) 28.0 Physical Exam Const alert and oriented x3 HEENT normocephalic Eyes PERRL Resp normal respiratory effort and normal air movement Cardio regular rate and regular rhythm GI soft to palpation, non-tender and non-distended Extremity normal to inspection Assessment & Plan Assessment/Plan (1) Screen for colon cancer: PLAN: I explained endoscopy in detail to the patient. I explained the risks including but not limited to stroke or heart attack with anesthesia, perforationof the GI tract, bleeding, infection. I explained that any of these could necessitate further emergency surgery. The patient understands and all questions were answered sufficiently. The patient wishes to proceed with procedure. Dilan Arnold MD Pager: [facility] [address] [place] [address], [address] [place], [place] [address] Office: Surgery Risks - Colonoscopy Risks Include but are not Limited To: Risks include but are not limited to: Bleeding, perforation requiring further surgery, inability to complete colonoscopy requiring barium enema. 10/18/24 1010 Cosigner Signature (if applicable): CC: Dr. Dilan Arnold MD; Dr. Terry Pierre MD~ Signed [facility]09-05-2025 [facility] Medical Records Department [address] [place] [address] History Physical Exam 10/18/24 1009 MR#: [id number] Acct: [id number] Name: KEVIN DOMINGUEZ Rep #: [id number] : 1960 64 From: Dilan Arnold MD PCP: Dr. Terry Pierre MD Status:[facility] Location: [place] [address] HPI - General HPI Narrative KEVIN DOMINGUEZ, is a 64 F who presents for screening colonoscopy. Her last colonoscopy was 10 years ago. She denies any abdominal pain or blood in stool. She does not have any family history of colon cancer. [facility] Medical History Wears contact lenses Wears glasses Non-smoker History of echocardiogram History of stress test History of vertigo Vertigo Ganglion of left hand IBS (irritable bowel syndrome) Home Medications ???Medication ???Instructions ???Recorded ???Last Taken ???Type NK 10/17/17 Unknown History Allergy/AdvReac Type Severity Reaction Status Date / Time Penicillins Allergy Mild Unknown Verified 10/18/24 09:34 sulfamethoxazole Allergy Mild itchy, rash Verified 10/18/24 09:34 Family History Mother Cancer non-hodgkins lymphoma Father Cancer leukemia Heart disease Grandmother Heart disease Surgical History H/O colonoscopy H/O tubal ligation Hx of cholecystectomy History of tonsillectomy H/O dilation and curettage Social History Smoking Status: Never smoker alcohol intake: current details: social substance use type: does not use caffeine: Yes what type of physical activity do you participate in: walking and other details: Ajit frequency: 3-4 times per week seatbelt use: always do you feel safe at home: Yes additional social history: - Oscar Patient and are both retired Past Medical/Surgical History Planned Operation Planned Operative Procedure(s): CSCOPE Previous Hospitalizations/Surgeries HX Hospitalizations: No Any Problems With Anesthesia: No You/Your Family Experience Fever (Hyperthermia) With Anes: No Cholinesterase deficiency: No Cardiovascular Hx Hypertension: No Respiratory Hx Sleep Apnea: No Hx Respiratory Tract Infection/Cold (presently): No Do You Snore Loudly (louder than talking or can be heard): No Do You Often Feel Tired/ Fatigued/ Sleepy Dring Daytime?: No Has Anyone Observed You Stop Breathing During Sleep?: No Result (for STOP score): Negative Smoking Status: Never smoker Gastrointestinal Special diet followed at home: No Neurological Does patient have nerve stimulator: No Reproduction : No Miscellaneous Recent Exposure to Contagious Disease: No Allergies Penicillins Allergy (Mild, Verified 10/18/24 09:34) Unknown sulfamethoxazole Allergy (Mild, Verified 10/18/24 09:34) itchy, rash Discharge Is Pt Admitted From a Penitentiary, or a Jail: No After D/C, Where Do you Plan to Go: Return Home Vital Signs Vital Signs Vital Signs: 10/18/24 09:35 10/18/24 09:35 10/18/24 10:04 Temperature 97.5 F L 97.5 F L Temperature Source Temporal Pulse Rate 74 74 Respiratory Rate 12 12 Respiratory Pattern Normal Blood Pressure 133/53 H 133/53 H Blood Pressure Mean 79 Blood Pressure Source Monitor Blood Pressure Position Semi-Fowlers Blood Pressure Location Right Arm Pulse Ox 98 98 Oxygen Delivery Method Room Air Room Air Weight Weight: 174 lb 2.643 oz Body Mass Index (BMI) 28.0 Physical Exam Const alert and oriented x3 HEENT normocephalic Eyes PERRL Resp normal respiratory effort and normal air movement Cardio regular rate and regular rhythm GI soft to palpation, non-tender and non-distended Extremity normal to inspection Assessment Plan Assessment/Plan (1) Screen for colon cancer: PLAN: I explained endoscopy in detail to the patient. I explained the risks including but not limited to stroke or heart attack with anesthesia, perforation of the GI tract, bleeding, infection. I explained that any of these could necessitate further emergency surgery. The patient understands and all questions were answered sufficiently. The patient wishes to proceed with procedure. Dilan Arnold MD Pager: [facility] [address] [place] [address], [address] [place] [address] Office: Surgery Risks - Colonoscopy Risks Include but are not Limited To: Risks include but are not limited to: Bleeding, perforation requiring further surgery, inability to complete colonoscopy requiring barium enema. 10/18/24 1010 (more content not included)...[facility]09-05-2025 Consult note [facility] Medical Records Department [address] [id number] Pre-Anesthesia Evaluation 10/18/24 0959 MR#: [id number] Acct: [id number] Name: KEVIN DOMINGUEZ Rep #:[id number] : 1960 64 From: Leeroy Garcia MD PCP: Dr. Terry Pierre MD Status :REG SDC Y Race: C Location: [id number] ASA Classification* ASA Classification ASA Classification: 1 Assessment & Plan Anesthesia* Anesthesia Assessment Anesthesia Assessment: Discussed sedation and/or anesthesia options, risks, benefits, and alternatives with patient/parents/legal guardian/POA. Questions invited. The patient/parents/legal guardian/POA seems to understand and agrees to proceedwith anesthesia plan. Reviewed the physical assessment, medical history, allergy history and patient home medications list prior to surgery/procedure/anesthetic and documented any changes. Performed airway and anesthesia risk assessments. Anesthesia Type Anesthesia Type: MAC History Source History Obtained from:: Patient and Chart Anesthesia Focused Assessment* Temperature: 97.5 F Pulse Rate: 74 Blood Pressure: 133/53 Respiratory Rate: 12 Pulse Ox: 98 Oxygen Delivery Method: Room Air Airway Assessment Mouth opens: >3 cm Mallampati Score: III Teeth Condition: Caps/Crowns (Tooth #8 has a cap. It is tight.) Neck Range of motion (ROM): Full ROM Labs Anesthesia Preop lab: CBC CHEMISTRY COAG Pre-Assessment Diagnosis/Proposed Procedure Planned Operative Procedure(s): CSCOPE Anesthesia History Anesthesia History - butter maker: Anesthesia History - butter maker Hx Hospitalization No 10/11/24 13:12 Any Problems With Anesthesia No 10/11/24 13:12 Cholinesterase deficiency No 10/11/24 13:12 You/Your Family Experience No 10/11/24 13:12 fever (hyperthermia) with Relationship Recent Exposure to Contagious No 10/18/24 09:35 Disease Does patient have nerve No 10/11/24 13:12 stimulator Patient instructed to have device shut off --Does patient have Pacemaker No 10/18/24 09:35 or ICD? When Was Last Pacemaker Check QUESTION #4 FULL TEXT: You/Your Family Experience fever (hyperthermia) with Anesthesia Last Oral Intake Last Oral intake: Last Oral Intake NPO since 20:00 10/18/24 09:35 Meds taken in AM with sips of No 10/18/24 09:35 water? 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 Female Yes 10/11/24 13:12 HX of Motion Sickness Yes 10/11/24 13:12 HX of N/V After Surgery No 10/11/24 13:12 Non-Smoker Yes 10/11/24 13:12 Duration of Surgery greater No 10/11/24 13:12 than 60 minutes Number of Risk Factors 3 10/11/24 13:12 PONV Score Moderate Risk 10/11/24 13:12 Height & Weight Height & Weight: Anesthesia: Height & Weight Height 5 ft 6 in 10/18/24 09:35 Weight: 79 kg 10/18/24 09:35 Body Mass Index (BMI) 28.0 10/18/24 09:35 Respiratory Assessment Respiratory Assessment - butter maker: Respiratory Tract Infection Hx - butter maker Hx Respiratory Tract Infection No 10/11/24 13:12 STOP Sleep Apnea STOP Sleep Apnea - butter maker: STOP Sleep Apnea - butter maker Hx Hypertension No 10/11/24 13:12 Hx Sleep Apnea No 10/11/24 13:12 CPAP BIPAP Do you snore loudly (louder No 10/11/24 13:12 than talking or can be heard Do you often feel tired/ No 10/11/24 13:12 fatigued/ sleepy during daytime? Has anyone observed you stop No 10/11/24 13:12 breathing during sleep? STOP Results Negative 10/11/24 13:12 QUESTION #5 FULL TEXT : Do you snore loudly (louder than talking or can be heard through closeddoors)? 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 Specify any problems Hx of Preganancy in last 3 N/A 10/11/24 13:12 Months Nurse Filling Out Transfusion NBUCHER 10/11/24 13:12 & Questions: Date: 10/11/24 10/11/24 13:12 Time: 13:12 10/11/24 13:12 Patient unable to answer at this time (ie. confused, unrespo /Reproduction History /Reproductive History - butter maker: /Reproductive Hx- butter maker Hx Now No 10/11/24 13:12 Gestational Age (in weeks): EDC: Hx Hx Para Hx Section SAB No 10/11/24 13:12 Active Medications Active Medications: Current Medications Generic Name Dose Route Start Last Admin Trade Name Freq PRN Reason Stop Dose Admin Lactated Ringer's 1,000 mls @ 15 mls/hr 10/18/24 09:30 10/18/24 09:43 IV 15 mls/hr .Q48H ANTOLIN Administration PFSH Medical History Wears contact lenses Wears glasses Non-smoker History of echocardiogram History of stress test History of vertigo Vertigo Ganglion of left hand IBS (irritable bowel syndrome) Home Medications ?Medication ?Instructions ?Recorded ?Last Taken ?Type NK 10/17/17 Unknown History Allergy/AdvReac Type Severity Reaction Status Date / Time Penicillins Allergy Mild Unknown Verified 10/18/24 09:34 sulfamethoxazole Allergy Mild itchy, rash Verified 10/18/24 09:34 Family History Mother Cancer non-hodgkins lymphoma Father Cancer leukemia Heart disease Grandmother Heart disease Surgical History H/O colonoscopy H/O tubal ligation Hx of cholecystectomy History of tonsillectomy H/O dilation and curettage Social History Smoking Status: Never smoker alcohol intake: current details: social substance use type: does not use caffeine: Yes what type of physical activity do you participate in: walking and other details: Ajit frequency: 3-4 times per week seatbelt use: always do you feel safe at home: Yes additional social history: - Oscar Patient and are both retired Review of Systems (Anesthesia) ROS Narrative System reviewed and no additional complaints, except as documented. 10/18/24 1006 lisa DAVIS> Date _ Leeroy Garcia MD Cosigner Signature: Date CC: ~ [facility]igned [facility] Note Date/Time October 18, 2024 10:06am [facility] Medical Records Department [address] [place] [address] Pre-Anesthesia Evaluation 10/18/24958 MR#: [id number] Acct: [id number] Name: KEVIN DOMINGUEZ Rep #:[id number] : 1960 64 From: Leeroy Garcia MD PCP: Dr. Terry Pierre MD Status :REG SDC Y Race: C Location: [place] [address] ASA Classification* ASA Classification ASA Classification: 1 Assessment & Plan Anesthesia* Anesthesia Assessment Anesthesia Assessment: Discussed sedation and/or anesthesia options, risks, benefits, and alternatives with patient/parents/legal guardian/POA. Questions invited. The patient/parents/legal guardian/POA seems to understand and agrees to proceedwith anesthesia plan. Reviewed the physical assessment, medical history, allergy history and patient home medications list prior to surgery/procedure/anesthetic and documented any changes. Performed airway and anesthesia risk assessments. Anesthesia Type Anesthesia Type: MAC History Source History Obtained from:: Patient and Chart Anesthesia Focused Assessment* Temperature: 97.5 F Pulse Rate: 74 Blood Pressure: 133/53 Respiratory Rate: 12 Pulse Ox: 98 Oxygen Delivery Method: Room Air Airway Assessment Mouth opens: >3 cm Mallampati Score: III Teeth Condition: Caps/Crowns (Tooth #8 has a cap. It is tight.) Neck Range of motion (ROM): Full ROM Labs Anesthesia Preop lab: CBC CHEMISTRY COAG Pre-Assessment Diagnosis/Proposed Procedure Planned Operative Procedure(s): CSCOPE Anesthesia History Anesthesia History - butter maker: Anesthesia History - butter maker Hx Hospitalization No 10/11/24 13:12 Any Problems With Anesthesia No 10/11/24 13:12 Cholinesterase deficiency No 10/11/24 13:12 You/Your Family Experience No 10/11/24 13:12 fever (hyperthermia) with Relationship Recent Exposure to Contagious No 10/18/24 09:35 Disease Does patient have nerve No 10/11/24 13:12 stimulator Patient instructed to have device shut off --Does patient have Pacemaker No 10/18/24 09:35 or ICD? When Was Last Pacemaker Check QUESTION #4 FULL TEXT: You/Your Family Experience fever (hyperthermia) with Anesthesia Last Oral Intake Last Oral intake: Last Oral Intake NPO since 20:00 10/18/24 09:35 Meds taken in AM with sips of No 10/18/24 09:35 water? 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 Female Yes 10/11/24 13:12 HX of Motion Sickness Yes 10/11/24 13:12 HX of N/V After Surgery No 10/11/24 13:12 Non-Smoker Yes 10/11/24 13:12 Duration of Surgery greater No 10/11/24 13:12 than 60 minutes Number of Risk Factors 3 10/11/24 13:12 PONV Score Moderate Risk 10/11/24 13:12 Height & Weight Height & Weight: Anesthesia: Height & Weight Height 5 ft 6 in 10/18/24 09:35 Weight: 79 kg 10/18/24 09:35 Body Mass Index (BMI) 28.0 10/18/24 09:35 Respiratory Assessment Respiratory Assessment - butter maker: Respiratory Tract Infection Hx - butter maker Hx Respiratory Tract Infection No 10/11/24 13:12 STOP Sleep Apnea STOP Sleep Apnea - butter maker: STOP Sleep Apnea - butter maker Hx Hypertension No 10/11/24 13:12 Hx Sleep Apnea No 10/11/24 13:12 CPAP BIPAP Do you snore loudly (louder No 10/11/24 13:12 than talking or can be heard Do you often feel tired/ No 10/11/24 13:12 fatigued/ sleepy during daytime? Has anyone observed you stop No 10/11/24 13:12 breathing during sleep? STOP Results Negative 10/11/24 13:12 QUESTION #5 FULL TEXT : Do you snore loudly (louder than talking or can be heard through closed doors)? 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 Specify any problems Hx of Preganancy in last 3 N/A 10/11/24 13:12 Months Nurse Filling Out Transfusion NBUCHER 10/11/24 13:12 & Questions: Date: 10/11/24 10/11/24 13:12 Time: 13:12 10/11/24 13:12 Patient unable to answer at this time (ie. confused, unrespo /Reproduction History /Reproductive History - butter maker: /Reproductive Hx- butter maker Hx Now No 10/11/24 13:12 Gestational Age (in weeks): EDC: Hx Hx Para Hx Section SAB No 10/11/24 13:12 Active Medications Active Medications: Current Medications Generic Name Dose Route Start Last Admin Trade Name Freq PRN Reason Stop Dose Admin Lactated Ringer's 1,000 mls @ 15 mls/hr 10/18/24 09:30 10/18/24 09:43 IV 15 mls/hr .Q48H ANTOLIN Administration PFSH Medical History Wears contact lenses Wears glasses Non-smoker History of echocardiogram History of stress test History of vertigo Vertigo Ganglion of left hand IBS (irritable bowel syndrome) Home Medications ?Medication ?Instructions ?Recorded ?Last Taken ?Type NK 10/17/17 Unknown History Allergy/AdvReac Type Severity Reaction Status Date / Time Penicillins Allergy Mild Unknown Verified 10/18/24 09:34 sulfamethoxazole Allergy Mild itchy, rash Verified 10/18/24 09:34 Family History Mother Cancer non-hodgkins lymphoma Father Cancer leukemia Heart disease Grandmother Heart disease Surgical History H/O colonoscopy H/O tubal ligation Hx of cholecystectomy History of tonsillectomy H/O dilation and curettage Social History Smoking Status: Never smoker alcohol intake: current details: social substance use type: does not use caffeine: Yes what type of physical activity do you participate in: walking and other details: Ajit frequency: 3-4 times per week seatbelt use: always do you feel safe at home: Yes additional social history: - Oscar Patient and are both retired Review of Systems (Anesthesia) ROS Narrative System reviewed and no additional complaints, except as documented. 10/18/24 1006 <Electronically signed by Leeroy gonzalez MD> Date _ Leeroy Garcia MD Cosigner Signature: Date CC: ~ Signed [facility] Work Phone: Consult note Author Aliyah Monsivais [facility] Note Date/Time October 18, 2024 10:46am [facility] Medical Records Department [address] [place] [address] Anesthesia Postop Eval I 10/18/24 1044 MR#: [id number] Acct: [id number] Name: KEVIN DOMINGUEZ Rep #:[id number] : 1960 64 From: Aliyah Monsivais CRNA PCP: Dr. Terry Pierre MD Status :REG [facility] Y Race: C Location: [place] [address] Anesthesia: Postop Eval I Current Vital Signs Temperature: 97.2 F Pulse Rate: 58 Blood Pressure: 97/64 Respiratory Rate: 16 Pulse Ox: 97 Oxygen Delivery Method: Room Air Assessment Airway patent: Yes Spontaneous unlabored respirations: Yes Mental status: Awake nausea: No Vomiting: No Anesthesia Complication: No Fluid Hydration Crystalloid volume administer (ml): 700 Total IV fluid infused: 700 Progress Note Anesthesia document: Postop Eval 1 completed: Yes 10/18/24 1046 <Electronically signed by Aliyah beckham ACUTE DIALYSIS REGISTERED NURSE> Date _ Aliyah Monsivais ACUTE DIALYSIS REGISTERED NURSE Cosigner Signature: Date CC: ~ Signed [facility] Work Phone: Evaluation noteNo assessment information available [facility] Work Phone: History and physical note Author Dilan Arnold [facility] Note Date/Time October 18, 2024 10:10am [facility] Medical Records Department [address] [place] [id number] History & Physical Exam 10/18/24 1009 MR#: [id number] Acct: [id number] Name: KEVIN DOMINGUEZ Rep #:[id number] : 1960 64 From: Dilan talamantes MD PCP: Dr. Terry Pierre MD Status :REG [facility] Location: [place] [address] HPI - General HPI Narrative KEVIN DOMINGUEZ, is a 64 F who presents for screening colonoscopy. Her lastcolonoscopy was 10 years ago. She denies any abdominal pain or blood in stool. She does not have any family history of colon cancer. [facility] Medical History Wears contact lenses Wears glasses Non-smoker History of echocardiogram History of stress test History of vertigo Vertigo Ganglion of left hand IBS (irritable bowel syndrome) Home Medications ?Medication ?Instructions ?Recorded ?Last Taken ?Type NK 10/17/17 Unknown History Allergy/AdvReac Type Severity Reaction Status Date / Time Penicillins Allergy Mild Unknown Verified 10/18/24 09:34 sulfamethoxazole Allergy Mild itchy, rash Verified 10/18/24 09:34 Family History Mother Cancer non-hodgkins lymphoma Father Cancer leukemia Heart disease Grandmother Heart disease Surgical History H/O colonoscopy H/O tubal ligation Hx of cholecystectomy History of tonsillectomy H/O dilation and curettage Social History Smoking Status: Never smoker alcohol intake: current details: social substance use type: does not use caffeine: Yes what type of physical activity do you participate in: walking and other details: Ajit frequency: 3-4 times per week seatbelt use: always do you feel safe at home: Yes additional social history: - Oscar Patient and are both retired Past Medical/Surgical History Planned Operation Planned Operative Procedure(s): CSCOPE Previous Hospitalizations/Surgeries HX Hospitalizations: No Any Problems With Anesthesia: No You/Your Family Experience Fever (Hyperthermia) With Anes: No Cholinesterase deficiency: No Cardiovascular Hx Hypertension: No Respiratory Hx Sleep Apnea: No Hx Respiratory Tract Infection/Cold (presently): No Do You Snore Loudly (louder than talking or can be heard): No Do You Often Feel Tired/ Fatigued/ Sleepy Dring Daytime?: No Has Anyone Observed You Stop Breathing During Sleep?: No Result (for STOP score): Negative Smoking Status: Never smoker Gastrointestinal Special diet followed at home: No Neurological Does patient have nerve stimulator: No Reproduction : No Miscellaneous Recent Exposure to Contagious Disease: No Allergies Penicillins Allergy (Mild, Verified 10/18/24 09:34) Unknown sulfamethoxazole Allergy (Mild, Verified 10/18/24 09:34) itchy, rash Discharge Is Pt Admitted From a Penitentiary, or a Jail: No After D/C, Where Do you Plan to Go: Return Home Vital Signs Vital Signs Vital Signs: 10/18/24 09:35 10/18/24 09:35 10/18/24 10:04 Temperature 97.5 F L 97.5 F L Temperature Source Temporal Pulse Rate 74 74 Respiratory Rate 12 12 Respiratory Pattern Normal Blood Pressure 133/53 H 133/53 H Blood Pressure Mean 79 Blood Pressure Source Monitor Blood Pressure Position Semi-Fowlers Blood Pressure Location Right Arm Pulse Ox 98 98 Oxygen Delivery Method Room Air Room Air Weight Weight: 174 lb 2.643 oz Body Mass Index (BMI) 28.0 Physical Exam Const alert and oriented x3 HEENT normocephalic Eyes PERRL Resp normal respiratory effort and normal air movement Cardio regular rate and regular rhythm GI soft to palpation, non-tender and non-distended Extremity normal to inspection Assessment & Plan Assessment/Plan (1) Screen for colon cancer: PLAN: I explained endoscopy in detail to the patient. I explained the risks including but not limited to stroke or heart attack with anesthesia, perforationof the GI tract, bleeding, infection. I explained that any of these could necessitate further emergency surgery. The patient understands and all questions were answered sufficiently. The patient wishes to proceed with procedure. Dilan Arnold MD Pager: [facility] [address] [place] [address], [address] [place] [phone] Office: Surgery Risks - Colonoscopy Risks Include but are not Limited To: Risks include but are not limited to: Bleeding, perforation requiring further surgery, inability to complete colonoscopy requiring barium enema. 10/18/24 1010 <Electronically signed by Dilan Arnold MD> Cosigner Signature (if applicable): CC: Dr. Dilan Arnold MD; Dr. 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 Yes October 11, 2024 1:12pm Summary Purpose Additional Source Comments Goals (unrecognized section and content) Goals may be documented in a n alternate sectionGoals may be documented in an alternate section Care Teams (unrecognized sec tion and content) Team Status: Active Member Role/Relationship Status Dates Dr. Terry Pierre MD Primary Care Provider Acti ve Team Status: Inactive Member Role/Relationship Status Dates Dr. Terry Pierre MD Primary Care Provider Acti ve Start: October 18, 2024 End: October 18, 2024 Dr. Dilan Arnold MD Attending Provider Active Start: October 18, 2024 End: October 18, 2024 Dr. Dilan Arnold MD Referring Provider Active Start: October 18, 2024 End: October 18, 2024 Team Status: Active Member Role/Relationship Status Dates Dr. Terry Pierre MD Primary Care Provider Acti ve Start: October 18, 2024 Dr. Dilan Arnold MD Attending Provider Active Start: October 18, 2024 Dr. Dilan Arnold MD Referring Provider Active Start: October 18, 2024 Dr. Dilan Arnold MD Other Provider Active Start: October 18, 2024 INFORMATION SOURCE (unrecogn ized section and content) DATE CREATED AUTHOR 11/17/2024 [facility] FOR RECORDS PERTAINING TO PATIENTS WHO ARE OR HAVE BEEN ENROLLED IN A CHEMICAL DEPENDENCY/SUBSTANCEABUSE PROGRAM, SOME INFORMATION MAY BE OMITTED. This clinical summary was aggregated from multiple sources. Caution should be exercised in using it in the provision of clinical care. This summary normalizes information from multiple sources, and as a consequence, information in this document may materially change the coding, format and clinical context of patient data. In addition, data may be omitted in some cases. CLINICAL DECISIONS SHOULD BE BASED ON THE PRIMARY CLINICAL RECORDS. [employer] [facility]. provides no warranty or guarantee of the accuracy or completeness of information in this document.
[2025-01-12 18:50] LABS: Hematocrit 36.9 % (37-47); Hemoglobin 12.6 g/dL (12.0-15.0); Immature Granulocytes Count 0.010 X10^3/uL (0.0-0.0); Mean Corp Hgb Conc 34.1 g/dL (32-36); Mean Corpuscular Volume 94.4 fL (81-99); Mean Platelet Vol. 10.1 fl (6.2-12.0); NRBC Flagged by Analyzer 0 % (0-5); Platelet Count 252 K/mm3 (150-450); RBC Distribution Width CV 12.7 % (11.6-14.6); RBC Distribution Width SD 44.5 fl (35.1-43.9); Red Blood Count 3.91 M/mm3 (4.2-5.4); White Blood Count 6.7 K/mm3 (4.4-11.0)
--- NOTE | 2025-01-12 18:58 | EDS_ITS ---
HPI History of Present Illness Chief Complaint: Lower Extremity Injury Detail of Chief Complaint: Left popliteal pain Onset/Context/Timing Onset: Today Context: Sudden Onset Timing: Waxes and wanes Quality: Pain Location: Popliteal follows with the radiates towards the groin Current Severity: Mild Maximum Severity: Severe Worsened by: Nothing Relieved by: Nothing Associated Symptoms Associated Symptoms: No cardiac or respiratory symptoms Narrative Narrative: Patient is a 64-year-old woman. She has no significant past medical history. She presents with atraumatic pain posterior fossa left knee. She denies history of VTE. She has no risk factors for VTE. She denies chest pain, pressure, tightness or heaviness. Denies pain with breathing. Denies dyspnea or dyspnea on exertion. She has not noted any discoloration or swelling of her left lower extremity. Prior similar symptoms: No Recent Illness/Hospitalization: No PFSH PFSH Medical History Wears contact lenses Wears glasses Non-smoker History of echocardiogram History of stress test History of vertigo Vertigo Ganglion of left hand IBS (irritable bowel syndrome) Home Medications ?Medication ?Instructions ?Recorded ?Last Taken ?Type naproxen 500 mg tablet 500 mg PO BID #14 tabs 01/12 Unknown Rx Allergy/AdvReac Type Severity Reaction Status Date / Time Penicillins Allergy Mild Unknown Verified 01/12/25 18:11 sulfamethoxazole Allergy Mild itchy, rash Verified 01/12/25 18:11 Family History Mother Cancer non-hodgkins lymphoma Father Cancer leukemia Heart disease Grandmother Heart disease Surgical History H/O colonoscopy H/O tubal ligation Hx of cholecystectomy History of tonsillectomy H/O dilation and curettage Social History Smoking Status: Never smoker alcohol intake: current details: social substance use type: does not use caffeine: Yes what type of physical activity do you participate in: walking and other details: Ajit frequency: 3-4 times per week seatbelt use: always do you feel safe at home: Yes additional social history: - Oscar Patient and are both retired ROS ROS ED Constitutional Constitutional ED: Denies chills, fever(s), subjective, sweats or weight loss Cardiovascular Cardiovascular: Denies chest pain, palpitations or racing heartbeat Respiratory/Chest Respiratory/Chest: Denies cough, dyspnea or dyspnea on exertion Musculoskeletal Musculoskeletal: Reports other Details: Detailed HPI narrative Integumentary Denies rash Neurologic Neurologic: Denies paresthesias or weakness EXAM Physical Exam Const Vital Signs: 01/12/25 18:09 Temperature 97.1 F L Temperature Source Temporal Pulse Rate 73 Respiratory Rate 14 Blood Pressure 156/69 H Blood Pressure Mean 98 Pulse Ox 98 Oxygen Delivery Method Room Air Positive well nourished and well developed General Appearance ED: well developed and NAD; Negative for pallor HEENT Reports moist mucous membranes Negative for trauma Eyes PERRL and EOMs intact bilaterally General Eye ED: Negative for scleral icterus Resp normal respiratory effort and clear to auscultation bilaterally Cardio regular rate, regular rhythm, S1 normal heart sound, S2 normal heart sound and no murmurs Extremity normal to inspection Extremity Narrative: There is pain to palpation popliteal fossa in the proximity of the popliteal vein/artery. The patella is not ballotable. There is no effusion. She is able to extend 180 degrees and flex past 90 degrees. There are some minimal joint tenderness medially. There is no pain or laxity with varus valgus stress testing. Kenyetta's test was negative there is no obvious asymmetry of the right lower extremity compared to the left. There is no discoloration. There is no leg vein distention. Neuro oriented x3 and CN's II-XII intact bilaterally Sensorium / Orientation: alert Psych mental status grossly normal Skin no rashes or lesions noted, no wounds and skin turgor normal General Skin Exam: Negative for jaundice or pallor MDM MDM MDM Narrative Medical decision making narrative: Differential diagnosis is muscle skeletal, Franco's cyst (which would be unlikely since she has no history of knee problems) DVT or pain of unknown etiology. D- dimer was obtained since Wells score for DVT is 1. If D-dimer is negative DVT has been ruled out. If D-dimer is positive will order venous duplex study as an outpatient. BMP was obtained to assess renal function so there is no recent laboratory test since this would affect dosing of Eliquis. Lab Data Attestation: I reviewed the patient's lab results. Lab results narrative: CBC is unremarkable. D-dimer is normal. Basic metabolic panel is normal. Labs: Laboratory Results - last 24 hr 01/12/25 18:40 WBC 6.7 RBC 3.91 L Hgb 12.6 Hct 36.9 L MCV 94.4 MCH 32.2 H MCHC 34.1 RDW Std Deviation 44.5 H RDW Coeff of Aroldo 12.7 Plt Count 252 MPV 10.1 Immature Gran % (Auto) 0.200 Neut % (Auto) 62.4 Lymph % (Auto) 27.8 [place] % (Auto) 6.8 Eos % (Auto) 2.0 Baso % (Auto) 0.8 Absolute Neuts (auto) 4.2 Absolute Lymphs (auto) 1.85 Nucleated RBC % 0 D-Dimer Quant (PE/DVT) 0.45 Sodium 141 Potassium 3.6 Chloride 103 Carbon Dioxide 25.9 Anion Gap 12 BUN 13 Creatinine 0.86 Estim Creat Clear Calc 71.21 Est GFR (MDRD) Non-Af 76 BUN/Creatinine Ratio 15.7 Glucose 99 Calcium 9.2 Treatment and Re-Evaluation :: Patient was informed of test results. Since she has palpable tenderness suspect this is musculoskeletal. Will treat with NSAIDs and she has no contraindication and ice Discharge Plan Triage Chief Complaint: Lower Extremity Injury ED Provider: Richi Ely Dx/Rx/DC Orders Clinical Impression: Musculoskeletal pain of left lower extremity, Elevated blood-pressure reading without diagnosis of hypertension Instructions: ED Muscle Strain, Extremity Prescriptions: New naproxen 500 mg tablet 500 mg PO BID Qty: 14 0RF Primary Care Provider: Terry Pierre Referrals: Terry Pierre MD [Primary Care Provider, Family Practice] - 1 Week if not improving Print Language: [place] Disposition Disposition: Home, Self Care
[2025-01-12 19:06] LABS: D-Dimer Quantitative (DVT/PE) 0.45 FEU/ug/m (0.27-0.49)
[2025-01-12 19:26] LABS: Anion Gap 12 (5-15); BUN 13 mg/dL (4-19); BUN/Creat Ratio 15.7 RATIO (10-20); Calcium,Total 9.2 mg/dL (7.6-11.0); Carbon Dioxide 25.9 mmol/L (21.0-32.0); Chloride 103 mmol/L (98-108); Estimated Creatinine Clearance 71.21 ml/min (50-250); Glucose 99 mg/dL (70-99); Potassium 3.6 mmol/L (3.3-5.1)
== END 2025-01-12 20:15 | disposition home or self-care (01) ==
PROVIDERS: Emergency Provider Emergency Medicine; PCP Family Medicine; Visit Provider Emergency Medicine
DX: M25.562 Pain in left knee (principal); R03.0 Elevated blood-pressure reading, without diagnosis of hypertension
CPT/HCPCS: 80048; 85025; 85379; 99283; A4216

== ENCOUNTER → 2025-01-29 | Outpatient (CLI) | payer OTHER, SELFPAY ==
[2025-02-03 16:09] LABS: HPV APTIMA, High Risk Negative (Negative)
== END | disposition home or self-care (01) ==
LOC: BWCLAB 16:08
PROVIDERS: PCP Family Medicine; Visit Provider Nurse Practitioner Women's Health
DX: Z12.4 Encounter for screening for malignant neoplasm of cervix (principal)
CPT/HCPCS: 87624; 88175; G0145